=== PATIENT | female | born 1980 | race African-American/Black ===

== ENCOUNTER 2018-02-08 05:37 | Inpatient (IN) | payer OTHER ==
[~2018-02-08] VITALS: Ht 162.6 cm; Wt 127.0 kg
[~2018-02-08 05:37] MED LIST: ZOFRAN ODT4 M1 SL
[2018-02-08 06:23] LABS: ABSOLUTE BASOPHIL COUNT 0 /CUMM (0.0-0.2); ABSOLUTE EOSINOPHIL COUNT 0.2 /CUMM (0.0-0.7); ABSOLUTE GRANULOCYTE CT 7.9 /CUMM (1.4-6.5); ABSOLUTE LYMPH COUNT 1.8 /CUMM (1.2-3.4); ABSOLUTE MONOCYTE COUNT 0.9 /CUMM (0.10-0.60); BASOPHIL % 0.3 % (0.0-2.0); EOSINOPHIL % 1.6 % (0-5); GRANULOCYTE % 73.1 % (42.2-75.2); HEMATOCRIT 30.4 % (37-47); MEAN CORPUSCULAR HGB 27.2 PG (27.0-31.0); MEAN CORPUSCULAR HGB CONC 33.2 G/DL (33.0-37.0); PLATELET COUNT 198 /CUMM (130-400); RED BLOOD CELL CT 3.71 /CUMM (4.20-5.40); WHITE BLOOD CELL COUNT 10.8 /CUMM (4.8-10.8)
[2018-02-08 09:35] VITALS: BP 111/53
--- NOTE | 2018-02-08 09:35 | History & Physical Pre-Op ---
General Information and HPI MD Statement: I have seen and personally examined HENRY HARRIS and documented this H&P. The patient is a 37 year old F who presented with a patient stated chief complaint of []. Term 2 previous sections History of Present Illness: 42-year-old 3 para 2001 at 39 weeks gestation with a previous section 2 who presents to the childbirth center for a repeat section and tubal ligation patient has been counseled regarding tubal ligation with a failure rate of 1 every 250 given the opportunity ask questions and signed a consent. Allergies/Medications Allergies: Coded Allergies: No Known Allergies (07/17/17) Home Med list No Known Home Medications Past History Surgical History Pertinent Surgical History: Review of Systems Review of Systems: Denies contractions denies rupture of membranes fever headache Exam & Diagnostic Data Last 24 Hrs of Vital Signs/I&O As per chart vital signs stable Physical Exam: Obese black female in no apparent distress HEENT anicteric Lungs clear Heart S1-S2 Abdomen soft nontender estimated weight 8 pounds Cervix is 1 cm long vertex floating extremities +1 edema negative Homans Assessment/Plan Assessment/Plan: Assessment is term 2 previous sections multiparity plan is for 3 g of Ancef a section and tubal ligation As Ranked By This Provider Problem List: 1.
--- NOTE | 2018-02-08 09:42 | Operative Report ---
Operative/Inv Procedure Report Surgery Date: 02/08/18 Name of Procedure: Repeat low flap transverse section bilateral tubal ligation Via Rosie technique and lysis of adhesions Pre-Operative Diagnosis: Term 2 previous sections and multiparity advanced maternal age Post-Operative Diagnosis: Same Estimated Blood Loss: 850 Surgeon/Teller Head: Yoel SPAULDING,Yany Flynn Anesthesia: block Operative/Procedure Note Note: Procedure note patient was taken to the operating room placed on position after adequate skin testing for spinal anesthesia the skin was cut with a knife through no Pfannenstiel skin incision was carried down to the rectus fascia using the Bovie care was taken to extend the incision and create hemostasis the rectus sheath was dissected bluntly as well as sharply off of the fascia the rectus was densely adherent on and was dissected bluntly as well as sharply off of the fundus of the uterus the lower blade of the [place] was placed in the lower end of the incision the visceral peritoneum of the uterus was dissected anteriorly to develop bladder flap there were dense adhesions on the patient's right at this point the bladder blade was replaced to protect the bladder flap in the lower uterine segment use was nicked entered with the back and knife dissected bluntly as well as sharply all instruments oversewn 3 the endosalpinx was Bovie coagulated patient tolerated that well at this point the left tube was picked up care to its fimbriated end approximately 770s to be Bovie coagulated cut and removed oversewn 3 hemostasis was apparent this was returned to abdominal cavity all pedicles were reexamined and found to be hemostatic the peritoneum was reapproximated using 0 the fascia was replacement to continue sutures #1 the skin was reapproximated using micheal at the end of the case the counts correct urine was clear Jose had been applied to the uterine incision prior to skin closing from the field the infant was delivered over the abdominal wall suction well and to clear the cord was doubly clamped cut and was handed to the insight leader was in the delivery room to aid in resuscitation placenta was delivered manually noted to be intact was wiped clean with 4 white dry laps as well as a ring forcep to remove adherent tissue intravenous Pitocin as well as intramyometrial Pitocin was used for uterine contractility at this point the uterus is oversewn with clot removed and Bovie coagulated the endosalpinx. And suture of 0 was imbricated interrupted figure of eights a running locking suture imbrication of 0 was performed hemostasis was apparent at this point the right tube was carried to its embedded and approximately 7 cm tube was clamped and oversewn. At this point the uterus was returned to abdominal cavity. The pedicles were reexamined and found to be hemostatic. The fascia was reapproximated to continue sutures of #1 after Jose have been placed on surgical incision. The skin was reapproximated with micheal of the Bovie coagulation subcutaneous tissue sterile dressing was applied counts were correct urine was clear at the end the case. Other infiltrates for recovery room awake and alert Findings: Normal tubes and ovaries bilaterally dense adhesions from the rectus sheath to the peritoneum dense adhesions in the lower uterine segment to the peritoneum and the bladder otherwise normal anatomy viable male three-vessel cord 7 lbs. 9 oz.
[2018-02-09 08:35] LABS: ABSOLUTE BASOPHIL COUNT 0 /CUMM (0.0-0.2); ABSOLUTE EOSINOPHIL COUNT 0.1 /CUMM (0.0-0.7); ABSOLUTE GRANULOCYTE CT 7.1 /CUMM (1.4-6.5); ABSOLUTE LYMPH COUNT 1.2 /CUMM (1.2-3.4); ABSOLUTE MONOCYTE COUNT 0.6 /CUMM (0.10-0.60); BASOPHIL % 0.4 % (0.0-2.0); EOSINOPHIL % 1.6 % (0-5); GRANULOCYTE % 77.7 % (42.2-75.2); HEMATOCRIT 27.1 % (37-47); MEAN CORPUSCULAR HGB 26.9 PG (27.0-31.0); MEAN CORPUSCULAR HGB CONC 32.8 G/DL (33.0-37.0); MEAN PLATELET VOLUME 11.7 FL (7.4-10.4); PLATELET COUNT 177 /CUMM (130-400); RBC DISTRIBUTION WIDTH 15.1 % (11.5-14.5); WHITE BLOOD CELL COUNT 9.1 /CUMM (4.8-10.8)
--- NOTE | 2018-02-09 12:23 | PN- Post Delivery/GYN ---
Subjective Subjective: NO COMPLAINTS Objective Last 24 Hrs of Vital Signs/I&O PER CHART Physical Exam: PE OBESE BF IN NAD ABD SOFT NT LOCHIAMINIMAL INCISION CDI EXT -EDMA -HOMANS Assessment/Plan Assessment/Plan ASSESS S/PC/S TL PLAN CONT PPC
--- NOTE | 2018-02-10 07:53 | PN- Post Delivery/GYN ---
Subjective Subjective: NO COMPLAINTS Objective Last 24 Hrs of Vital Signs/I&O VSS Physical Exam: PE OBESE BF IN NAD ABD SOFT NT INCISION CDI EXT - EDEMA Assessment/Plan Assessment/Plan ASSESS S/P C/S CONT PPC PLAN CONT PPC
[2018-02-10] MEDS ORDERED: PERCOCET 5-3251 EACH PO (13:21)
[2018-02-10] MEDS ORDERED: IBUPROFEN800 M1 PO (13:21)
== END 2018-02-11 12:15 | DRG 765 ==
LOC: GNO 05:37
PROVIDERS: Specialist
PROC: 10D00Z1 Extraction of Products of Conception, Low, Open Approach (ICD-10-PCS; principal; 2018-02-08)
PROC: 0UB70ZZ Excision of Bilateral Fallopian Tubes, Open Approach (ICD-10-PCS; 2018-02-08)
DX: O34.211 Maternal care for low transverse scar from previous cesarean delivery (principal); O98.82 Other maternal infectious and parasitic diseases complicating childbirth; Z3A.39 39 weeks gestation of pregnancy; Z37.0 Single live birth; Z30.2 Encounter for sterilization; B95.1 Streptococcus, group B, as the cause of diseases classified elsewhere
CPT/HCPCS: 36415; 81001; 87071; 87086; 87389; J0690; J1200; J1650; J1885; J2405; J7120

== ENCOUNTER 2018-03-12 18:07 | Inpatient (IN) | payer OTHER ==
[~2018-03-12] VITALS: Ht 165.1 cm; Wt 123.4 kg
[~2018-03-12 18:07] MED LIST changes: +IBUPROFEN800 M1 PO; +PERCOCET 5-3251 EACH PO
--- NOTE | 2018-03-12 18:39 | ED DYSPNEA/ASTHMA COMPLAINT ---
See Addendum History of Present Illness General Chief Complaint: General Adult Stated Complaint: BACK PAIN/SOB Source: patient, family, old records Exam Limitations: no limitations Vital Signs & Intake/Output Vital Signs & Intake/Output Vital Signs Date Time Temp Pulse Resp B/P B/P Pulse O2 O2 Flow FiO2 Mean Ox Delivery Rate 03/12 2120 98.5 78 16 126/54 100 Nasal 2.0L Cannula 03/12 1848 100 Nasal 2.0L Cannula 03/12 1848 96 22 138/83 100 Nasal 2.0L Cannula Allergies Coded Allergies: No Known Allergies (07/17/17) Reconcile Medications Ibuprofen 800 MG TABLET 800 MG PO Q6P PRN UTERINE CRAMPING Oxycodone HCl/Acetaminophen (Percocet 5-325 MG Tablet) 5 MG-325 MG TABLET 1 TAB PO Q4P PRN PAIN SCALE 4-6 (MODERATE) Triage Note: PER PT SOB SINCE 0600, SP 4 WEEKS AGO. PT GRUNTING IN TRIAGE CO CP DIFF SPEAKING Triage Nurses Notes Reviewed? yes : No Patient currently breastfeeds: No HPI: Patient is 4 weeks from . There were no problems during the . The have been no problems and the period until this morning when she woke up with chest pain radiating to the back and shortness of breath. The pain is constant. There are no aggravating or mitigating factors. She feels that she cannot catch her breath. The pain is sharp and stabbing in nature. She rates the pain at 6 out of 10. (Citlali SPAULDING,Chester Rios) Past History Travel History Traveled to [place] past 21 day No Medical History Any Pertinent Medical History? 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 No (Citlali SPAULDING,Chester Rios) Review of Systems Review of Systems Constitutional: Reports: no symptoms. EENTM: Reports: no symptoms. Respiratory: Reports: see HPI, short of breath. Cardiovascular: Reports: see HPI, chest pain. GI: Reports: no symptoms. Genitourinary: Reports: no symptoms. Musculoskeletal: Reports: no symptoms. Skin: Reports: no symptoms. Neurological/Psychological: Reports: no symptoms. Hematologic/Endocrine: Reports: no symptoms. Immunologic/Allergic: Reports: no symptoms. All Other Systems: Reviewed and Negative (Citlali SPAULDING,Chester Rios) Physical Exam Physical Exam General Appearance: well developed/nourished, alert, awake, anxious, moderate distress Head: atraumatic, normal appearance Eyes: Bilateral: PERRL, EOMI. Ears, Nose, Throat: normal pharynx, normal ENT inspection, hearing grossly normal Neck: normal inspection, supple, full range of motion Respiratory: normal breath sounds, chest non-tender, no respiratory distress, lungs clear Cardiovascular: normal peripheral pulses, tachycardia Gastrointestinal: normal bowel sounds, soft, non-tender, no organomegaly Extremities: normal inspection, normal capillary refill, normal range of motion, no edema Neurologic/Psych: no motor/sensory deficits, awake, alert, oriented x 3, normal gait, normal mood/affect Skin: intact, normal color, warm/dry Lymphatic: no anterior cervical albin Core Measures ACS in differential dx? No CVA/TIA Diagnosis No Sepsis Present: No Sepsis Focused Exam Completed? No (Citlali SPAULDING,Chester Rios) Progress Differential Diagnosis: asthma, AMI, bronchitis, costochondritis, pericarditis, pulmonary embolism, pneumonia, pneumothorax Plan of Care: Orders Procedure Date/time Status Add-on Test (ER Only) 03/12 2033 Active HUMAN BETA HCG SCREEN 03/12 1843 Complete ARTERIAL BLOOD GAS (GEN) 03/12 184 Complete TROPONIN LEVEL 03/12 183 Complete PARTIAL THROMBOPLASTIN TIME 03/12 1831 Complete PROTHROMBIN TIME 03/12 183 Complete COMPREHENSIVE METABOLIC PANEL 03/12 183 Complete CBC WITHOUT DIFFERENTIAL 03/12 1831 Complete B-TYPE NATRIURETIC PEP (BNP) 03/12 1831 Complete EKG 03/12 1831 Active Laboratory Tests 03/12/182046: PT 12.4, INR 1.14, APTT 27 03/12/18 1900: pH 7.43, pCO2 40, pO2 115 H, HCO3 26, ABG O2 Sat (Measured) 98.0, Carboxyhemoglobin 0.3 L, O2 Concentration % 2L, O2 Delivery Method N/C, Phlebotomy Draw Site RIGHT RADIAL 03/12/181842: Anion Gap 8, Estimated GFR > 60, BUN/Creatinine Ratio 16.3, Glucose 107 H, Calcium 9.5, Total Bilirubin 0.3, AST 13 L, ALT 20, Alkaline Phosphatase 109, Troponin I < 0.01, Kgn-G-Wwvymatakll Pept 50.6, Total Protein 7.6, Albumin 4.2, Globulin 3.4, Albumin/Globulin Ratio 1.2, Total Beta HCG NEGATIVE 03/12/181830: CBC w Diff NO MAN DIFF REQ, RBC 4.37, MCV 80.4 L, MCH 25.9 L, MCHC 32.2 L, RDW 15.3 H, MPV 10.0, Gran % 69.2, Lymphocytes % 21.2, Monocytes % 5.9, Eosinophils % 3.3, Basophils % 0.4, Absolute Granulocytes 7.9 H, Absolute Lymphocytes 2.4, Absolute Monocytes 0.7 H, Absolute Eosinophils 0.4, Absolute Basophils 0 Diagnostic Imaging: Viewed by Me: CT Scan. Discussed w/RAD: CT Scan. Initial ED EKG: SINUS TACHYCARDIA Rhythm Strip: sinus tachycardia Hand-Off Endorsed To: Carlos Alberto Castellano DO Endorsed Time: 1945 Pending: CT (Citlali SPAULDING,Chester Rios) Departure Departure Disposition: STILL A PATIENT Condition: Stable Clinical Impression Primary Impression: Dyspnea Referrals: Patient Has No Primary Care Dr (PCP/Family) Departure Forms: Customer Survey General Discharge Information (Citlali SPAULDING,Cehster Rios) Admission Note Spoke With: Samson Lizarraga MD Documentation of Exam: Documentation of any treatments & extenuating circumstances including Concerns Regarding Discharge (functional status, medication knowledge or non-compliance, living conditions, etc.) that warrant an admission rather than observation: [The patient needs admission to the ICU for IV heparin, pulmonary consultation, hemodynamic monitoring and oxygen Patient was signed out to me by Dr. Godwin at 7 PM] PATIENT: HENRY HARRIS PRESENT AGE: 37 PATIENT ACCOUNT NO: [id number] : 81 LOCATION: [facility] ORDERING PHYSICIAN: Estefany MCWILLIAMS SERVICE DATE: 03/12/18 EXAM TYPE: CAT - CTA CHEST-PULMONARY EMBOLISM Addendum: This critical result was discussed by telephone with Dr. Castellano at 10:50 PM on 03/12/2018 . Addendum Signed by: Mane Stringer MD 03/12/18 7992 EXAMINATION: CT ANGIOGRAM OF THE CHEST WITH AND WITHOUT CONTRAST (CT PULMONARY ANGIOGRAM FOR PE) CLINICAL INFORMATION: Presumptive Dx: PE Signs Symptoms: hypoxia, CP, SOB, post COMPARISON: Chest radiograph dated 02/20/2018 TECHNIQUE: Prior to contrast administration, noncontrast localization images were obtained. Subsequently, multidetector volumetric imaging was performed from the thoracic inlet to below the diaphragms following the administration of 95 mL Optiray 320 intravenous contrast. No contrast reaction reported. Sagittal, coronal, and MIP oblique sagittal reformatted images were obtained on the CT workstation, uploaded to PACS, and reviewed. Total exam dose-length product 856 mGy-cm. FINDINGS: QUALITY OF STUDY/CONTRAST BOLUS: Satisfactory PULMONARY ARTERIES: There is a filling defect within the lobar and apical segmental branches of the right upper lobe with nonfilling of a subsegmental branch to the right lung apex. A filling defect is also present within the segmental pulmonary artery to the lateral basilar segment of the left lower lobe. A pulmonary embolus is also suspected within a subsegmental branch of the medial basilar segment. No larger pulmonary emboli identified in the main pulmonary arteries. Caliber of the pulmonary arteries is normal. THORACIC AORTA: No aneurysm or dissection. LUNG: Dependent atelectasis is present in the lower lobes bilaterally, left greater than right. Dense opacity in the posterior aspect of the left lower lobe likely corresponds to multifocal atelectasis. Very early pulmonary infarct is less likely. Central airways are clear. No suspicious pulmonary nodules are identified. PLEURA: Trace left pleural effusion MEDIASTINUM: Small amount of thymic tissue is present anteriorly. Heart is normal in size. Trace amount of pericardial fluid is noted. No adenopathy. Thyroid gland is unremarkable. No evidence of septal bowing or right heart strain. CHEST WALL/AXILLA: No axillary lymphadenopathy. OSSEOUS STRUCTURES: No acute or suspicious osseous abnormality. UPPER ABDOMEN: Unremarkable. No reflux of contrast into the hepatic veins to suggest elevated right heart pressures. IMPRESSION: 1. Acute pulmonary emboli in the right upper and left lower lobes. Overall burden is relatively small. No evidence of heart strain. 2. Bibasilar atelectasis, more pronounced in the left lower lobe. Focal dense opacity in the left lung base likely corresponds to dense atelectasis, though a small developing infarct is also possible. 3. Trace left pleural effusion VTE: positive DICTATED BY: Mane Stringer MD DATE/TIME DICTATED:03/12/182229 GERIATRIC SOCIAL WORK PROFESSOR:ANUPAM DATE/TIME TRANSCRIBED:03/12/182229 CONFIDENTIAL, DO NOT COPY WITHOUT APPROPRIATE AUTHORIZATION. <Electronically signed in Other Vendor System> SIGNED BY: Mane Stringer MD 03/12/18 0426 (Gray DONALDSON,Carlos Alberto Bartholomew) Critical Care Note Critical Care Note Critical Care Time: mins: (45MIN) (Citlali SPAULDING,Chester Rios)
[2018-03-12 18:52] LABS: ABSOLUTE BASOPHIL COUNT 0 /CUMM (0.0-0.2); ABSOLUTE EOSINOPHIL COUNT 0.4 /CUMM (0.0-0.7); ABSOLUTE GRANULOCYTE CT 7.9 /CUMM (1.4-6.5); ABSOLUTE LYMPH COUNT 2.4 /CUMM (1.2-3.4); ABSOLUTE MONOCYTE COUNT 0.7 /CUMM (0.10-0.60); BASOPHIL % 0.4 % (0.0-2.0); EOSINOPHIL % 3.3 % (0-5); GRANULOCYTE % 69.2 % (42.2-75.2); HEMATOCRIT 35.2 % (37-47); MEAN CORPUSCULAR HGB 25.9 PG (27.0-31.0); MEAN CORPUSCULAR HGB CONC 32.2 G/DL (33.0-37.0); MEAN CORPUSCULAR VOLUME 80.4 FL (81.0-99.0); PLATELET COUNT 257 /CUMM (130-400); RBC DISTRIBUTION WIDTH 15.3 % (11.5-14.5); RED BLOOD CELL CT 4.37 /CUMM (4.20-5.40); WHITE BLOOD CELL COUNT 11.4 /CUMM (4.8-10.8)
[2018-03-12 21:19] LABS: PT 12.4 SEC (9.4-12.5); PTT 27 SEC (25-37)
--- NOTE | 2018-03-12 22:49 | CT SCAN REPORT ---
EXAMINATION: CT ANGIOGRAM OF THE CHEST WITH AND WITHOUT CONTRAST (CT PULMONARY ANGIOGRAM FOR PE) CLINICAL INFORMATION: Presumptive Dx: PE Signs Symptoms: hypoxia, CP, SOB, post COMPARISON: Chest radiograph dated 02/20/2018 TECHNIQUE: Prior to contrast administration, noncontrast localization images were obtained. Subsequently, multidetector volumetric imaging was performed from the thoracic inlet to below the diaphragms following the administration of 95 mL Optiray 320 intravenous contrast. No contrast reaction reported. Sagittal, coronal, and MIP oblique sagittal reformatted images were obtained on the CT workstation, uploaded to PACS, and reviewed. Total exam dose-length product 856 mGy-cm. FINDINGS: QUALITY OF STUDY/CONTRAST BOLUS: Satisfactory PULMONARY ARTERIES: There is a filling defect within the lobar and apical segmental branches of the right upper lobe with nonfilling of a subsegmental branch to the right lung apex. A filling defect is also present within the segmental pulmonary artery to the lateral basilar segment of the left lower lobe. A pulmonary embolus is also suspected within a subsegmental branch of the medial basilar segment. No larger pulmonary emboli identified in the main pulmonary arteries. Caliber of the pulmonary arteries is normal. THORACIC AORTA: No aneurysm or dissection. LUNG: Dependent atelectasis is present in the lower lobes bilaterally, left greater than right. Dense opacity in the posterior aspect of the left lower lobe likely corresponds to multifocal atelectasis. Very early pulmonary infarct is less likely. Central airways are clear. No suspicious pulmonary nodules are identified. PLEURA: Trace left pleural effusion MEDIASTINUM: Small amount of thymic tissue is present anteriorly. Heart is normal in size. Trace amount of pericardial fluid is noted. No adenopathy. Thyroid gland is unremarkable. No evidence of septal bowing or right heart strain. CHEST WALL/AXILLA: No axillary lymphadenopathy. OSSEOUS STRUCTURES: No acute or suspicious osseous abnormality. UPPER ABDOMEN: Unremarkable. No reflux of contrast into the hepatic veins to suggest elevated right heart pressures. IMPRESSION: 1. Acute pulmonary emboli in the right upper and left lower lobes. Overall burden is relatively small. No evidence of heart strain. 2. Bibasilar atelectasis, more pronounced in the left lower lobe. Focal dense opacity in the left lung base likely corresponds to dense atelectasis, though a small developing infarct is also possible. 3. Trace left pleural effusion VTE: positive
--- NOTE | 2018-03-12 23:56 | History & Physical ---
Cristobal Riley 03/12/18 1885: General Information and HPI MD Statement: I have seen and personally examined HENRY HARRIS and documented this H&P. The patient is a 37 year old F who presented with a patient stated chief complaint of SHORTNESS OF BREATH AND BACK PAIN. Source of Information: patient, family Exam Limitations: no limitations History of Present Illness: Patient is a 37-year-old female with past medical history of section 3 , 4 weeks , who presents to the ED with 1 day of shortness of breath and bilateral back pain, left greater than right. The patient was in her normal uncomplicated state of health until this morning, at which time she experienced abrupt onset shortness of breath, especially worse when lying down. Patient also experienced pain "in her ribs "and bilaterally in her back, for which she used a topical menthol preparation, with no relief. She did not try any other medications. Prior to this visit to the ED, patient had been in to see her SENIOR SALES CONSULTANT for wound dehiscence a few weeks ago, and to the ED because her micheal had come out. At the latter of these visits, the patient had a chest x-ray performed which showed no abnormalities. The patient denies any fever, chills, night sweats, chest pain, abdominal pain, bowel issues, urinary symptoms, or continued bleeding after her delivery. Her shortness of breath is more pronounced when lying flat. 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 Home Who Do You Live With? spouse, child Services at Home: None Primary Language: Palauan Smoking Status: Never Smoked ETOH Use: denies use Illicit Drug Use: denies illicit drug use Living Will? unknown Functional Ability ADLs Independent: dressing, eating, toileting, bathing. Ambulation: independent IADLs Independent: shopping, housework, finances, food prep, telephone, transportation , medication admin. 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 Exam & Diagnostic Data Last 24 Hrs of Vital Signs/I&O Vital Signs Date Time Temp Pulse Resp B/P B/P Pulse O2 O2 Flow FiO2 Mean Ox Delivery Rate 03/13 0003 98.6 71 18 127/72 100 Nasal 2.0L Cannula 03/12 2120 98.5 78 16 126/54 100 Nasal 2.0L Cannula 03/12 1848 100 Nasal 2.0L Cannula 03/12 1848 96 22 138/83 100 Nasal 2.0L Cannula Intake & Output 03/13 0800 03/13 0000 03/12 1600 Intake Total 0 Output Total 200 Balance -200 Intake, Oral 0 Output, Urine 200 Patient 273 lb Weight Weight Standing Scale Measurement Method Physical Exam General Appearance Alert, Oriented X3, Cooperative, Mild Distress Skin No Rashes, No Breakdown, No Significant Lesion Skin Temp/Moisture Exam: Warm/Dry HEENT Atraumatic, PERRLA, EOMI Neck Supple, No JVD, No thryomegaly Lymphatic Cervical nl Cardiovascular Regular Rate, Normal S1, Normal S2, No Murmurs, Gallops, Rubs Lungs Clear to Auscultation, decreased air movement; no wheezes or rhonchi, patient on 2L nasal canula Abdomen Normal Bowel Sounds, Soft, No Tenderness, obese; wound appropriately healed and dry Neurological Normal Speech, Strength at 5/5 X4 Ext, Normal Tone, Sensation Intact, Cranial Nerves 3-12 NL Extremities No Clubbing, No Cyanosis, No Edema Last 24 Hrs of Labs/Juvencio: Laboratory Tests 03/13/18 0118: Troponin I Pending 03/12/182046: PT 12.4, INR 1.14, APTT 27 03/12/18 1900: pH 7.43, pCO2 40, pO2 115 H, HCO3 26, ABG O2 Sat (Measured) 98.0, Carboxyhemoglobin 0.3 L, O2 Concentration % 2L, O2 Delivery Method N/C, Phlebotomy Draw Site RIGHT RADIAL 03/12/181842: Anion Gap 8, Estimated GFR > 60, BUN/Creatinine Ratio 16.3, Glucose 107 H, Calcium 9.5, Total Bilirubin 0.3, AST 13 L, ALT 20, Alkaline Phosphatase 109, Troponin I < 0.01, Rpd-X-Zxnpiebihkj Pept 50.6, Total Protein 7.6, Albumin 4.2, Globulin 3.4, Albumin/Globulin Ratio 1.2, Total Beta HCG NEGATIVE 03/12/181830: CBC w Diff NO MAN DIFF REQ, RBC 4.37, MCV 80.4 L, MCH 25.9 L, MCHC 32.2 L, RDW 15.3 H, MPV 10.0, Gran % 69.2, Lymphocytes % 21.2, Monocytes % 5.9, Eosinophils % 3.3, Basophils % 0.4, Absolute Granulocytes 7.9 H, Absolute Lymphocytes 2.4, Absolute Monocytes 0.7 H, Absolute Eosinophils 0.4, Absolute Basophils 0 Diagnostic Data Other Results SERVICE DATE: 03/12/18-1831 EXAM TYPE: CAT - CTA CHEST-PULMONARY EMBOLISM Addendum: This critical result was discussed by telephone with Dr. Castellano at 10:50 PM on 03/12/2018 . Addendum Signed by: Mane Stringer MD 03/12/18 2390 EXAMINATION: CT ANGIOGRAM OF THE CHEST WITH AND WITHOUT CONTRAST (CT PULMONARY ANGIOGRAM FOR PE) CLINICAL INFORMATION: Presumptive Dx: PE Signs Symptoms: hypoxia, CP, SOB, post COMPARISON: Chest radiograph dated 02/20/2018 TECHNIQUE: Prior to contrast administration, noncontrast localization images were obtained. Subsequently, multidetector volumetric imaging was performed from the thoracic inlet to below the diaphragms following the administration of 95 mL Optiray 320 intravenous contrast. No contrast reaction reported. Sagittal, coronal, and MIP oblique sagittal reformatted images were obtained on the CT workstation, uploaded to PACS, and reviewed. Total exam dose-length product 856 mGy-cm. FINDINGS: QUALITY OF STUDY/CONTRAST BOLUS: Satisfactory PULMONARY ARTERIES: There is a filling defect within the lobar and apical segmental branches of the right upper lobe with nonfilling of a subsegmental branch to the right lung apex. A filling defect is also present within the segmental pulmonary artery to the lateral basilar segment of the left lower lobe. A pulmonary embolus is also suspected within a subsegmental branch of the medial basilar segment. No larger pulmonary emboli identified in the main pulmonary arteries. Caliber of the pulmonary arteries is normal. THORACIC AORTA: No aneurysm or dissection. LUNG: Dependent atelectasis is present in the lower lobes bilaterally, left greater than right. Dense opacity in the posterior aspect of the left lower lobe likely corresponds to multifocal atelectasis. Very early pulmonary infarct is less likely. Central airways are clear. No suspicious pulmonary nodules are identified. PLEURA: Trace left pleural effusion MEDIASTINUM: Small amount of thymic tissue is present anteriorly. Heart is normal in size. Trace amount of pericardial fluid is noted. No adenopathy. Thyroid gland is unremarkable. No evidence of septal bowing or right heart strain. CHEST WALL/AXILLA: No axillary lymphadenopathy. OSSEOUS STRUCTURES: No acute or suspicious osseous abnormality. UPPER ABDOMEN: Unremarkable. No reflux of contrast into the hepatic veins to suggest elevated right heart pressures. IMPRESSION: 1. Acute pulmonary emboli in the right upper and left lower lobes. Overall burden is relatively small. No evidence of heart strain. 2. Bibasilar atelectasis, more pronounced in the left lower lobe. Focal dense opacity in the left lung base likely corresponds to dense atelectasis, though a small developing infarct is also possible. 3. Trace left pleural effusion VTE: positive Assessment/Plan Assessment: 37-year-old patient who presents with shortness of breath and bilateral back pain. Problem list/plan: Bilateral pulmonary embolism -Tylenol, vicodin, dilaudid, lidoderm as needed for associated back pain DVT prophylaxis: IV heparin and ALPS Heart healthy diet Patient is full code As Ranked By This Provider Problem List: 1. Bilateral pulmonary embolism Core Measures/Misc (04/19) Acute Coronary Syndrome ACS Diagnosis: No Congestive Heart Failure Congestive Heart Failure Diagnosis No Cerebrovascular Accident CVA/TIA Diagnosis: No VTE (View Protocol) VTE Risk Factors / No Mechanical VTE Prophylaxis d/t N/A MechProphylax Ordered No VTE Pharm Prophylaxis d/t NA PharmProphylax ordered Sepsis (View protocol) Sepsis Present: No If YES complete Sepsis Event Note If YES complete Sepsis Event Note Anabel Smith MD 03/13/18 0017: Core Measures/Misc (04/19) Sepsis (View protocol) If YES complete Sepsis Event Note If YES complete Sepsis Event Note Resident Review Statement Resident Statement: examined this patient, discussed with post graduate intern, agreed with post graduate intern, discussed with family Other Findings: 37-year-old female para 3 lives 3, previous 3 Aguirre years, last childbirth 4 weeks ago came to [facility] with complaints of shortness of breath since morning. According to the patient she was in usual state of health until today morning following which she started developing pain in her back and left side of chest and difficulty in breathing. Patient tried ekye-qhx-kslmjdt local pain cream with no relief. Hence she decided to come to ER. During the same time she denies chest pain, palpitations, nausea, vomiting, abdominal pain, left arm pain, jaw pain, pain radiates into her back, fall, fever, chills, dizziness, headache, constipation, diarrhea. Patient came for follow-up a week after the last childbirth during that time she had wheezing and no imaging/treatment was given. Patient came to ED on 15 February for a wound dehiscence and was sent home with instruction to do dressing and follow-up with SENIOR SALES CONSULTANT. Chest x-ray was taken then which was found to be normal. Patient did not follow-up with her SENIOR SALES CONSULTANT related due to insurance issues. 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 According to her she has been eating and drinking well and was ambulating. Past medical history-none Past surgical history-3 [facility] Social history-denies alcohol, smoking, illicit drug use Family history-mother last year was diagnosed with clots [does not know the location] and had stroke. Denies family history of any bleeding disorders. On examination Patient is not in any acute distress; is in a recumbent position on 2 L of oxygen Conscious, oriented 3 CVS-S1-S2 no murmur Respiratory-decreased breath sounds bilaterally Abdomen-obese bowel sounds heard [facility] scar-healed Bilateral legs mild pedal edema Lxgzhqhujjuc-0-20 cranial nerves intact no weakness Admission vitals Temperature 98.5, pulse rate 70, respiratory rate 16, blood pressure 126/54, saturating 100% on 2 L of oxygen Admission labs WBC 11.4, hemoglobin 11.3, platelet count 257, sodium 138, potassium 4.3, BUN 13 , creatinine 0.8, total bilirubin 0.3, calcium 9.5, AST 13, ALT 20, troponin 0 0.01 beta-hCG negative. ED treatment Morphine 4 mg IV, Toradol IV once. CTA 1. Acute pulmonary emboli in the right upper and left lower lobes. Overall burden is relatively small. No evidence of heart strain. 2. Bibasilar atelectasis, more pronounced in the left lower lobe. Focal dense opacity in the left lung base likely corresponds to dense atelectasis, though a small developing infarct is also possible. 3. Trace left pleural effusion Assessment and plan 1. Bilateral pulmonary embolism Patient has bilateral pulmonary embolism this can be secondary due to dehydration/decreased ambulation. Denies family history of bleeding disorder/ coagulation. We will start her on IV heparin. EKG-sinus tachycardia with no RV strain. We will place her on telemetry. 2. Back pain-we will give Tylenol, Dilaudid, Percocet, Lidoderm patch as needed. 3. Vitals every shift 4. DVT prophylaxis-heparin and Alps 5. We will repeat EKG and troponin in the a.m. 6. Echocardiogram to rule out any RV strain consider cardiology if needed in the morning. 7. Consider bilateral Doppler of the legs. 8. Patient's SENIOR SALES CONSULTANT Dr. Dilalo needs to be informed in the morning. 9. Patient had LSCS- wound dehiscence-now appears healthy with no discharge. Code-full code Diet-heart healthy diet Zia SPAULD[place] 03/13/18 0422: General Information and HPI MD Statement: I have seen and personally examined HENRY HARRIS and documented this H&P. The patient is a 37 year old F who presented with a patient stated chief complaint of [shortness of breath]. Source of Information: patient Allergies/Medications Allergies: Coded Allergies: No Known Allergies (07/17/17) Past History Surgical History Surgical History: Past Family/Social History Psychosocial History Smoking Status: Never Smoked ETOH Use: denies use Illicit Drug Use: denies illicit drug use Employment History Employment Employed Review of Systems Review of Systems Constitutional: Reports: see HPI. Exam & Diagnostic Data Last 24 Hrs of Vital Signs/I&O Vital Signs Date Time Temp Pulse Resp B/P B/P Pulse O2 O2 Flow FiO2 Mean Ox Delivery Rate 03/13 0320 97.8 78 18 144/68 100 Nasal 2.0L Cannula 03/13 0003 98.6 71 18 127/72 100 Nasal 2.0L Cannula 03/120 98.5 78 16 126/54 100 Nasal 2.0L Cannula 03/12 1848 100 Nasal 2.0L Cannula 03/12 1848 96 22 138/83 100 Nasal 2.0L Cannula Intake & Output 03/13 0800 03/13 0000 03/12 1600 Intake Total 0 Output Total 200 Balance -200 Intake, Oral 0 Output, Urine 200 Patient 273 lb Weight Weight Standing Scale Measurement Method Physical Exam General Appearance Alert, Oriented X3, Cooperative, Mild Distress Skin No Rashes, No Breakdown, No Significant Lesion Skin Temp/Moisture Exam: Warm/Dry Sepsis Skin Exam (color): Normal for Ethnicity HEENT Atraumatic, PERRLA, EOMI Neck Supple, No JVD, No thryomegaly Lymphatic Axillary nl, Cervical nl Cardiovascular Regular Rate, Normal S1, Normal S2, No Murmurs Lungs decreased air movement; no wheezes or rhonchi, patient on 2L nasal canula Abdomen Normal Bowel Sounds, Soft, No Tenderness, obese; wound appropriately healed and dry Neurological Normal Gait, Normal Speech Extremities No Clubbing, No Cyanosis, No Edema Sepsis Peripheral Pulse Location: Dorsalis Pedis Sepsis Peripheral Pulse Exam: Normal Sepsis Cap Refill Exam: <2 Sec Last 24 Hrs of Labs/Juvencio: Laboratory Tests 03/13/18 0118: Troponin I < 0.01 03/12/182046: PT 12.4, INR 1.14, APTT 27 03/12/18 1900: pH 7.43, pCO2 40, pO2 115 H, HCO3 26, ABG O2 Sat (Measured) 98.0, Carboxyhemoglobin 0.3 L, O2 Concentration % 2L, O2 Delivery Method N/C, Phlebotomy Draw Site RIGHT RADIAL 03/12/18 184: Anion Gap 8, Estimated GFR > 60, BUN/Creatinine Ratio 16.3, Glucose 107 H, Calcium 9.5, Total Bilirubin 0.3, AST 13 L, ALT 20, Alkaline Phosphatase 109, Troponin I < 0.01, Ntq-G-Vusaoqasoal Pept 50.6, Total Protein 7.6, Albumin 4.2, Globulin 3.4, Albumin/Globulin Ratio 1.2, Total Beta HCG NEGATIVE 03/12/18 1831: CBC w Diff NO MAN DIFF REQ, RBC 4.37, MCV 80.4 L, MCH 25.9 L, MCHC 32.2 L, RDW 15.3 H, MPV 10.0, Gran % 69.2, Lymphocytes % 21.2, Monocytes % 5.9, Eosinophils % 3.3, Basophils % 0.4, Absolute Granulocytes 7.9 H, Absolute Lymphocytes 2.4, Absolute Monocytes 0.7 H, Absolute Eosinophils 0.4, Absolute Basophils 0 Core Measures/Misc (04/19) Sepsis (View protocol) If YES complete Sepsis Event Note If YES complete Sepsis Event Note Attending MD Review Statement Attending Statement Attending MD Statement: examined this patient, discuss w/resident/PA/[employer], agreed w/resident/PA/[employer], reviewed EMR data (avail), amended to note Attending Assessment/Plan: This patient is a 37-year-old female (para 3 3) without a significant past medical history gave to her last child 4 weeks ago and came to [facility] with complaints of shortness of breath since the morning of admission. According to the patient she was in usual state of health until today when she developing pain in her back and left side of chest and difficulty breathing. While in the ED she was found to have normal VS, slightly elevated WBC 11.4, CTA - Acute pulmonary emboli in the right upper and left lower lobes and EKG-sinus tachycardia with no RV strain. Admit to telemetry for bilateral pulmonary embolism. Started her on IV heparin. Repeat EKG and troponin in the a.m. Echocardiogram to rule out any RV strain. Pulmonary consult.
[2018-03-13 04:38] VITALS: BP 112/74
--- NOTE | 2018-03-13 05:24 | PN- Housestaff ---
See Addendum Subjective Follow-up For: Bilateral PE Complaints: no complaints Tele-Events Since Last Visit: Normal sinus rhythm Subjective: Patient seen and examined at bedside. She is sitting in her bed and appears to be in mild distress. She complains of back pain. She is anxious about her prognosis. She denies chest pain, palpitations, nausea, vomiting, dizziness. Review of Systems Constitutional: Reports: no symptoms. Objective Last 24 Hrs of Vital Signs/I&O Vital Signs Date Time Temp Pulse Resp B/P B/P Pulse O2 O2 Flow FiO2 Mean Ox Delivery Rate 03/13 0438 99.1 82 24 112/74 98 Nasal 2.0L Cannula 03/13 0436 Nasal 2.0L Cannula 03/13 0320 97.8 78 18 144/68 100 Nasal 2.0L Cannula 03/13 0003 98.6 71 18 127/72 100 Nasal 2.0L Cannula 03/12 2120 98.5 78 16 126/54 100 Nasal 2.0L Cannula 03/12 1848 100 Nasal 2.0L Cannula 03/12 1848 96 22 138/83 100 Nasal 2.0L Cannula Intake & Output 03/13 0800 03/13 0000 03/12 1600 Intake Total 0 Output Total 200 Balance -200 Intake, Oral 0 Output, Urine 200 Patient 271 lb 273 lb Weight Weight Bed scale Standing Scale Measurement Method Physical Exam General Appearance: Alert, Oriented X3, Cooperative, No Acute Distress, Mild Distress Cardiovascular: Regular Rate, Normal S1, Normal S2, No Murmurs Lungs: DEC B/L BREATH SOUNDS Abdomen: Soft, No Tenderness, No Hepatospenomegaly Neurological: Strength at 5/5 X4 Ext, Normal Tone, Sensation Intact, Cranial Nerves 3-12 NL Extremities: No Edema, Normal Pulses Current Medications: Current Medications Sig/Olinda Start time Last Medication Dose Route Stop Time Status Admin Acetaminophen 650 MG Q6P PRN 03/13 0200 AC PO Heparin Sodium 0 .STK-MED ONE 03/13 110 DC (Porcine) .ROUTE Heparin Sodium 5,000 UNIT ONCE ONE 03/13 0030 DC 03/13 (Porcine) IV 03/13 003 0115 Heparin Sodium 25,000 UNIT Q24H 03/13 003 AC 03/12 (Porcine) IV 2315 Sodium Chloride 500 ML Heparin Sodium 25,000 UNIT Q24H 03/13 0015 DC 03/12 (Porcine) IV 2315 Sodium Chloride 500 ML Hydrocodone Bitart/ 0 .STK-MED ONE 03/13 0348 DC Acetaminophen PO Hydrocodone Bitart/ 1 TAB Q6P PRN 03/13 200 AC 03/13 Acetaminophen PO 0356 Hydromorphone HCl 0 .STK-MED ONE 03/13 0330 DC .ROUTE Hydromorphone HCl 0.5 MG Q4P PRN 03/13 020 DC 03/13 IV 0333 Ketorolac 30 MG ONCE ONE 03/13 0500 DC Tromethamine IV 03/13 050 Ketorolac 0 .STK-MED ONE 03/12 184 DC Tromethamine .ROUTE Ketorolac 30 MG ONCE ONE 03/12 184 DC 03/12 Tromethamine IV 03/12 1846 184 Lidocaine 1 PAT DAILY PRN 03/13 200 AC 03/13 EXT 0338 Lorazepam 0 .STK-MED ONE 03/13 0431 DC PO Lorazepam 0.25 MG ONCE ONE 03/13 0430 DC 03/13 PO 03/13 043 0432 Morphine Sulfate 1 MG Q6P PRN 03/13 043 AC 03/13 IV 0432 Morphine Sulfate 0 .STK-MED ONE 03/13 042 DC .ROUTE Morphine Sulfate 0 .STK-MED ONE 03/12 1847 DC .ROUTE Morphine Sulfate 4 MG ONCE ONE 03/12 1845 DC 03/12 IV 03/12 Last 24 Hrs of Lab/Juvencio Results Last 24 Hrs of Labs/Mics: Laboratory Tests 03/13/18 0118: Troponin I < 0.01 03/12/182046: PT 12.4, INR 1.14, APTT 27 03/12/18 1900: pH 7.43, pCO2 40, pO2 115 H, HCO3 26, ABG O2 Sat (Measured) 98.0, Carboxyhemoglobin 0.3 L, O2 Concentration % 2L, O2 Delivery Method N/C, Phlebotomy Draw Site RIGHT RADIAL 03/12/181842: Anion Gap 8, Estimated GFR > 60, BUN/Creatinine Ratio 16.3, Glucose 107 H, Calcium 9.5, Total Bilirubin 0.3, AST 13 L, ALT 20, Alkaline Phosphatase 109, Troponin I < 0.01, Llz-A-Esxrmgriwbn Pept 50.6, Total Protein 7.6, Albumin 4.2, Globulin 3.4, Albumin/Globulin Ratio 1.2, Total Beta HCG NEGATIVE 03/12/18 1831: CBC w Diff NO MAN DIFF REQ, RBC 4.37, MCV 80.4 L, MCH 25.9 L, MCHC 32.2 L, RDW 15.3 H, MPV 10.0, Gran % 69.2, Lymphocytes % 21.2, Monocytes % 5.9, Eosinophils % 3.3, Basophils % 0.4, Absolute Granulocytes 7.9 H, Absolute Lymphocytes 2.4, Absolute Monocytes 0.7 H, Absolute Eosinophils 0.4, Absolute Basophils 0 Assessment/Plan Assessment: 37-year-old female para 3 lives 3, previous 3 Agu[place] years, last childbirth 4 weeks ago came to [place] ER with complaints of shortness of breath and found to have bilateral pulmonary embolism. Assessment and plan Bilateral pulmonary embolism * Continue IV heparin * Shortness of breath-on oxygen. Continue the same * Back pain-Lidoderm, Tylenol, Vicodin, morphine on board. * We will continue vitals every shift * Follow-up troponin EKG * Follow-up echocardiogram to rule out any RV strain and cardiology consult * Follow-up pulmonary consult * We will inform Dr. Diallo in a.m. * Consider bilateral lower extremity Doppler. Code-full code Diet heart healthy diet Problem List: 1. Bilateral pulmonary embolism Pain Ratin Pain Location: None Pain Goal: Remain pain free Pain Plan: Tylenol, Lidoderm, morphine Tomorrow's Labs & Rationales: CBC, BEP
[2018-03-13 06:27] LABS: ABSOLUTE BASOPHIL COUNT 0 /CUMM (0.0-0.2); ABSOLUTE EOSINOPHIL COUNT 0.4 /CUMM (0.0-0.7); ABSOLUTE GRANULOCYTE CT 6.9 /CUMM (1.4-6.5); ABSOLUTE LYMPH COUNT 2.6 /CUMM (1.2-3.4); ABSOLUTE MONOCYTE COUNT 1.1 /CUMM (0.10-0.60); BASOPHIL % 0.4 % (0.0-2.0); EOSINOPHIL % 3.2 % (0-5); GRANULOCYTE % 62.6 % (42.2-75.2); HEMATOCRIT 30.9 % (37-47); MEAN CORPUSCULAR HGB 26.1 PG (27.0-31.0); MEAN CORPUSCULAR HGB CONC 32.6 G/DL (33.0-37.0); MEAN CORPUSCULAR VOLUME 79.9 FL (81.0-99.0); MEAN PLATELET VOLUME 10.4 FL (7.4-10.4); PLATELET COUNT 231 /CUMM (130-400); RBC DISTRIBUTION WIDTH 15.3 % (11.5-14.5); RED BLOOD CELL CT 3.87 /CUMM (4.20-5.40); WHITE BLOOD CELL COUNT 11.1 /CUMM (4.8-10.8)
[2018-03-13 06:33] LABS: PTT 89 SEC (25-37)
--- NOTE | 2018-03-13 11:36 | ECHOCARDIOGRAM REPORT ---
HENRY HARRIS Age: 37 : 1980 Gender: F Exam Date: 03/13/2018 09:24 Exam Location: [address] Ht (in): 65 Wt (lb): 272 BSA: 2.45 BP: 112 / 74 Ordering Physician: Anabel Smith MD Referring Physician: Anabel Smith MD Technologist: Rand Luciano [facility] Room Number: 172 Indications: Rhythm: Sinus Technical Quality: fair FINDINGS Left Ventricle Normal left ventricular size, wall thickness and systolic function with no obvious regional wall motion abnormalities. Normal left ventricular diastolic filling pattern for age. The ejection fraction is visually estimated at 60 %. Right Ventricle The right ventricle is not well visualized but appears grossly normal in size and function. RVSP 25 mmHg, therefore normal. Right Atrium The right atrium is normal in size. Left Atrium The left atrium is normal in size. The interatrial septum is not well visualized. Mitral Valve The mitral valve is normal in structure and function. There is no mitral regurgitation. Aortic Valve Structurally normal aortic valve without significant sclerosis or stenosis. There is no aortic regurgitation. Tricuspid Valve The tricuspid valve is normal in structure and function. There is mild tricuspid regurgitation. Pulmonary artery systolic pressure is normal. Pulmonic Valve Structurally normal pulmonic valve. There is no pulmonic regurgitation. Pericardium Normal pericardium without effusion. No pleural effusion. Great Vessels Normal aortic root dimension. The aortic arch and great vessels are well seen and are normal. CONCLUSIONS The right ventricle is not well visualized but appears grossly normal in size and function. RVSP 25 mmHg, therefore normal. Normal left ventricular size, wall thickness and systolic function with no obvious regional wall motion abnormalities. Normal left ventricular diastolic filling pattern for age. The ejection fraction is visually estimated at 60 %. The left atrium is normal in size. The tricuspid valve is normal in structure and function. There is mild tricuspid regurgitation. Pulmonary artery systolic pressure is normal. Normal pericardium without effusion. Normal aortic root dimension. The aortic arch and great vessels are well seen and are normal. Ellen Branham M.D. (Electronically Signed) Final Date: 13 March 2018 11:34 MEASUREMENTS (Male / Female) Normal Values 2D ECHO LV Diastolic Diameter PLAX 4.3 cm 4.2 - 5.9 / 3.9 - 5.3 cm LV Systolic Diameter PLAX 2.7 cm 2.1 - 4.0 cm LV Fractional Shortening PLAX 37.2 % 25 - 46 % LV Ejection Fraction 2D Teich 67.5 % IVS Diastolic Thickness 1.1 cm LVPW Diastolic Thickness 1.1 cm LV Relative Wall Thickness 0.5 LVOT Diameter 2.0 cm Aortic Root Diameter 2.7 cm LA Systolic Diameter LX 3.2 cm 3.0 - 4.0 / 2.7 - 3.8 cm DOPPLER AV Peak Velocity 166.0 cm/s AV Peak Gradient 11.0 mmHg LVOT Peak Velocity 106.0 cm/s LVOT Peak Gradient 4.5 mmHg AV Area Cont Eq pk 2.0 cm Mitral E Point Velocity 93.3 cm/s Mitral A Point Velocity 66.6 cm/s Mitral E to A Ratio 1.4 MV Deceleration Time 257.0 ms TR Peak Velocity 238.0 cm/s TR Peak Gradient 22.7 mmHg PV Peak Velocity 125.0 cm/s PV Peak Gradient 6.3 mmHg LV E' Lateral Velocity 12.2 cm/s Mitral E to LV E' Lateral Ratio 7.6 LV E' Septal Velocity 12.0 cm/s Mitral E to LV E' Septal Ratio 7.8
--- NOTE | 2018-03-13 12:40 | Cons- Pulmonary ---
General Information and HPI Consulting Request Date of Consult: 03/13/18 Requested By: Dr. Lizarraga Reason for Consult: pulmonary embolism Source of Information: patient Exam Limitations: no limitations History of Present Illness: 37 year old woman. Consultation for pulmonary embolism. Patient had a delivery via section about 1 month ago. She is para 3/ 3. No other significant medical history. Presented with chest pain on the left and back pain with shortness of breath for 1 day. Recent wound dehiscence post , however recovered. CTA - RUL and LLL pulmonary emboli - small clot burden without heart strain. Bibasilar atelectasis primarily LLL consolidation, consistent with atelectasis. Trace left effusion. ECHO - RV is grossly normal, RVSP is normal. EF 60%. Denies fevers, chills, no sick contacts, travel history, no n/v/d/c. No obvious family history of clotting disorders, however patient will inquire. Allergies/Medications Allergies: Coded Allergies: No Known Allergies (07/17/17) Current Medications: Current Medications Sig/Olinda Start time Last Medication Dose Route Stop Time Status Admin Acetaminophen 650 MG Q6P PRN 03/13 0200 AC PO Heparin Sodium 0 .STK-MED ONE 03/13 0110 DC (Porcine) .ROUTE Heparin Sodium 5,000 UNIT ONCE ONE 03/13 0030 DC 03/13 (Porcine) IV 03/13 0031 0115 Heparin Sodium 25,000 UNIT Q24H 03/13 0030 AC 03/12 (Porcine) IV 2315 Sodium Chloride 500 ML Heparin Sodium 25,000 UNIT Q24H 03/13 0015 DC 03/12 (Porcine) IV 2315 Sodium Chloride 500 ML Hydrocodone Bitart/ 0 .STK-MED ONE 03/13 0348 DC Acetaminophen PO Hydrocodone Bitart/ 1 TAB Q6P PRN 03/13 0200 AC 03/13 Acetaminophen PO 0356 Hydromorphone HCl 0 .STK-MED ONE 03/13 0330 DC .ROUTE Hydromorphone HCl 0.5 MG Q4P PRN 03/13 0200 DC 03/13 IV 0333 Ketorolac 30 MG ONCE ONE 03/13 1115 DC Tromethamine IV 03/13 1116 Ketorolac 30 MG ONCE ONE 03/13 0500 DC 03/13 Tromethamine IV 03/13 0501 0855 Ketorolac 0 .STK-MED ONE 03/12 1847 DC Tromethamine .ROUTE Ketorolac 30 MG ONCE ONE 03/12 184 DC 03/12 Tromethamine IV 03/12 1846 184 Lidocaine 1 PAT DAILY PRN 03/13 0200 AC 03/13 EXT 0338 Lorazepam 0 .STK-MED ONE 03/13 0431 DC PO Lorazepam 0.25 MG ONCE ONE 03/13 0430 DC 03/13 PO 03/13 043 0432 Morphine Sulfate 4 MG Q4P PRN 03/13 1115 AC IV Morphine Sulfate 1 MG Q6P PRN 03/13 0430 DC 03/13 IV 0432 Morphine Sulfate 0 .STK-MED ONE 03/13 429 DC .ROUTE Morphine Sulfate 0 .STK-MED ONE 03/12 1847 DC .ROUTE Morphine Sulfate 4 MG ONCE ONE 03/12 1845 DC 03/12 IV 03/12 1846 184 Review of Systems Comments 18 pt ROS reviewed pertinent positives and negaties in HPI otherwise negative Past History Travel History Traveled to [place] past 21 day No Medical History Blood Transfusion Hx: No Neurological: NONE EENT: NONE Cardiovascular: NONE Respiratory: NONE Gastrointestinal: NONE Hepatic: NONE Renal: NONE Musculoskeletal: NONE Psychiatric: NONE Endocrine: NONE Blood Disorders: NONE Cancer(s): NONE 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 Home Who Do You Live With? spouse, child Services at Home: None Primary Language: Swedish Smoking Status: Never Smoked ETOH Use: denies use Illicit Drug Use: denies illicit drug use Living Will? unknown Functional Ability ADLs Independent: dressing, eating, toileting, bathing. Ambulation: independent IADLs Independent: shopping, housework, finances, food prep, telephone, transportation , medication admin. 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 Exam & Diagnostic Data Last 24 Hrs of Vital Signs/I&O Vital Signs Date Time Temp Pulse Resp B/P B/P Pulse O2 O2 Flow FiO2 Mean Ox Delivery Rate 03/13 438 99.1 82 24 112/74 98 Nasal 2.0L Cannula 03/13 436 Nasal 2.0L Cannula 03/13 320 97.8 78 18 144/68 100 Nasal 2.0L Cannula 03/13 0003 98.6 71 18 127/72 100 Nasal 2.0L Cannula 03/120 98.5 78 16 126/54 100 Nasal 2.0L Cannula 03/12 1848 100 Nasal 2.0L Cannula 03/12 1848 96 22 138/83 100 Nasal 2.0L Cannula Intake & Output 03/13 1600 03/13 0800 03/13 0000 Intake Total 120 0 Output Total 200 Balance 120 -200 Intake, Oral 120 0 Output, Urine 200 Patient 271 lb 273 lb Weight Weight Bed scale Standing Scale Measurement Method Physical Exam Other Physical Findings: gen aaox3 heent nasal cannula cvs s1, s2 lungs clear b/l abd soft, bs+, healing scar ext without edema Last 48 Hrs of Labs/Juvencio: Laboratory Tests 03/13/18 0530: Anion Gap 8, Estimated GFR > 60, BUN/Creatinine Ratio 18.6, APTT 89 H, CBC w Diff NO MAN DIFF REQ, RBC 3.87 L, MCV 79.9 L, MCH 26.1 L, MCHC 32.6 L, RDW 15.3 H, MPV 10.4, Gran % 62.6, Lymphocytes % 23.8, Monocytes % 10.0 H, Eosinophils % 3.2, Basophils % 0.4, Absolute Granulocytes 6.9 H, Absolute Lymphocytes 2.6, Absolute Monocytes 1.1 H, Absolute Eosinophils 0.4, Absolute Basophils 0 03/13/18 0118: Troponin I < 0.01 03/12/18 2047: PT 12.4, INR 1.14, APTT 27 03/12/18 1900: pH 7.43, pCO2 40, pO2 115 H, HCO3 26, ABG O2 Sat (Measured) 98.0, Carboxyhemoglobin 0.3 L, O2 Concentration % 2L, O2 Delivery Method N/C, Phlebotomy Draw Site RIGHT RADIAL 03/12/18 1843: Anion Gap 8, Estimated GFR > 60, BUN/Creatinine Ratio 16.3, Glucose 107 H, Calcium 9.5, Total Bilirubin 0.3, AST 13 L, ALT 20, Alkaline Phosphatase 109, Troponin I < 0.01, [id number]-[id number] Pept 50.6, Total Protein 7.6, Albumin 4.2, Globulin 3.4, Albumin/Globulin Ratio 1.2, Total Beta HCG NEGATIVE 03/12/18 1831: CBC w Diff NO MAN DIFF REQ, RBC 4.37, MCV 80.4 L, MCH 25.9 L, MCHC 32.2 L, RDW 15.3 H, MPV 10.0, Gran % 69.2, Lymphocytes % 21.2, Monocytes % 5.9, Eosinophils % 3.3, Basophils % 0.4, Absolute Granulocytes 7.9 H, Absolute Lymphocytes 2.4, Absolute Monocytes 0.7 H, Absolute Eosinophils 0.4, Absolute Basophils 0 Assessment/Plan Impression/Plan: Impression 37 year old woman * RUL & LLL PE without right heart strain - may have been provoked by recent c- section * LLL consolidation likely secondary to atelectasis Plan -continue anti-coagulation - given no heart strain the patient can be transitioned to a NOAC such as eliquis with appropriate dosing - please inquire regarding insurance coverage to make sure it is affordable -would check a hypercoagulable profile and this can also be completed with the assistance of a foot orthopedist -check LE dopplers -improve pain control in order to participate in effective incentive spirometry -d/w nursing staff to provide IST-incentive spirometry-please ensure patient knows how to use it attempt to discontinue oxygen dc planning with hematology f/u Consult Acknowledgment - Thank you for your consult request.
[2018-03-13 14:56] VITALS: BP 120/70
--- NOTE | 2018-03-13 16:01 | Cons- Cardiology ---
General Information and HPI Consulting Request Date of Consult: 03/13/18 Requested By: Samson Lizarraga MD History of Present Illness: Young woman of 37 years of age with no known prior medical history, 4 weeks . A was performed complicated by wound dehiscence which has since heeled. Her was uneventful. She presented to the hospital in the afternoon March 12, 2018 complaining of back pain and difficulty catching her breath. CT scan of the chest revealed bilateral segmental pulmonary embolisms and patient was started on heparin. She feels somewhat better today but still complains of the back pain and experiences periods of dyspnea associated with the back pain as she cannot take a deep breath during periods of pain exacerbation. Echocardiogram performed this morning did not show any significant signs of strain on the right ventricle, which seems to contract appropriately and right ventricular systolic pressure is within normal limits. Allergies/Medications Allergies: Coded Allergies: No Known Allergies (07/17/17) Current Medications: Current Medications Sig/Olinda Start time Last Medication Dose Route Stop Time Status Admin Acetaminophen 650 MG Q6P PRN 03/13 0200 AC PO Apixaban 10 MG BID 03/13 2100 AC PO Heparin Sodium 0 .STK-MED ONE 03/13 0110 DC (Porcine) .ROUTE Heparin Sodium 5,000 UNIT ONCE ONE 03/13 0030 DC 03/13 (Porcine) IV 03/13 003 0115 Heparin Sodium 25,000 UNIT Q24H 03/13 0030 AC 03/12 (Porcine) IV 03/13 2200 2315 Sodium Chloride 500 ML Heparin Sodium 25,000 UNIT Q24H 03/13 0015 DC 03/12 (Porcine) IV 2315 Sodium Chloride 500 ML Hydrocodone Bitart/ 0 .STK-MED ONE 03/13 0348 DC Acetaminophen PO Hydrocodone Bitart/ 1 TAB Q6P PRN 03/13 0200 AC 03/13 Acetaminophen PO 0356 Hydromorphone HCl 0 .STK-MED ONE 03/13 0330 DC .ROUTE Hydromorphone HCl 0.5 MG Q4P PRN 03/13 0200 DC 03/13 IV 0333 Ibuprofen 600 MG TIDPRN PRN 03/13 1430 AC PO Ketorolac 30 MG ONCE ONE 03/13 1115 DC Tromethamine IV 03/13 1116 Ketorolac 30 MG ONCE ONE 03/13 0500 DC 03/13 Tromethamine IV 03/13 0501 0855 Ketorolac 0 .STK-MED ONE 03/12 1847 DC Tromethamine .ROUTE Ketorolac 30 MG ONCE ONE 03/12 1845 DC 03/12 Tromethamine IV 03/12 1846 1846 Lidocaine 1 PAT DAILY PRN 03/13 0200 AC 03/13 EXT 0338 Lorazepam 0 .STK-MED ONE 03/13 0431 DC PO Lorazepam 0.25 MG ONCE ONE 03/13 0430 DC 03/13 PO 03/13 0431 0432 Morphine Sulfate 4 MG Q4P PRN 03/13 1115 AC IV Morphine Sulfate 1 MG Q6P PRN 03/13 0430 DC 03/13 IV 0432 Morphine Sulfate 0 .STK-MED ONE 03/13 0429 DC .ROUTE Morphine Sulfate 0 .STK-MED ONE 03/12 1847 DC .ROUTE Morphine Sulfate 4 MG ONCE ONE 03/12 184 DC 03/12 IV 03/12 1846 184 Review of Systems Review of Systems Constitutional: Reports: no symptoms. EENTM: Reports: no symptoms. Cardiovascular: Reports: orthopena. Denies: chest pain, palpitations, syncope. Respiratory: Reports: orthopnea, short of breath. Denies: cough, hemoptysis, sputum production, stridor, wheezing. GI: Denies: abdominal pain, bloating, constipation, diarrhea, distention, vomiting. Genitourinary: Denies: discharge, dysuria, frequency, hematuria, pain. Musculoskeletal: Denies: gout, joint pain, joint swelling, muscle pain, neck pain. Skin: Reports: no symptoms. Neurological/Psychological: Reports: anxiety. Hematologic/Endocrine: Denies: bruising, bleeding, polyuria, polydipsia. 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 Home Who Do You Live With? spouse, child Services at Home: None Primary Language: Andorran Smoking Status: Never Smoked ETOH Use: denies use Illicit Drug Use: denies illicit drug use Living Will? unknown Functional Ability ADLs Independent: dressing, eating, toileting, bathing. Ambulation: independent IADLs Independent: shopping, housework, finances, food prep, telephone, transportation , medication admin. 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 Exam & Diagnostic Data Vital Signs and I&O Vital Signs Date Time Temp Pulse Resp B/P B/P Pulse O2 O2 Flow FiO2 Mean Ox Delivery Rate 03/13 1456 99.2 81 20 120/70 98 Nasal Cannula 03/13 0438 99.1 82 24 112/74 98 Nasal 2.0L Cannula 03/13 0436 Nasal 2.0L Cannula 03/13 0320 97.8 78 18 144/68 100 Nasal 2.0L Cannula 03/13 0003 98.6 71 18 127/72 100 Nasal 2.0L Cannula 03/12 2120 98.5 78 16 126/54 100 Nasal 2.0L Cannula 03/12 1848 100 Nasal 2.0L Cannula 03/12 1848 96 22 138/83 100 Nasal 2.0L Cannula Intake & Output 03/13 1600 03/13 0800 03/13 0000 03/12 1600 03/12 0800 03/12 0000 Intake Total 120 0 Output Total 200 Balance 120 -200 Intake, Oral 120 0 Output, Urine 200 Patient 271 lb 273 lb Weight Weight Bed scale Standing Scale Measurement Method Physical Exam General Appearance: alert, lethargic, mild distress, obese Head: atraumatic Eyes: Bilateral: normal appearance. Ears, Nose, Throat: normal ENT inspection Neck: supple, full range of motion, trachea mid line Respiratory: normal breath sounds, quiet respiration, lungs clear Cardiovascular: regular rate/rhythm, normal peripheral pulses (no murmur) Gastrointestinal: normal bowel sounds, soft, non-tender, no organomegaly (c- section scar well heeled) Extremities: normal inspection, normal capillary refill, no edema (no calf tenderness) Neurologic/Psych: no motor/sensory deficits, awake, oriented x 3 Assessment/Plan Assessment/Plan Bilateral pulmonary embolisms in the context of recent // wound dehiscence, the patient being quite sedentary at baseline was even more sedentary during the postoperative period. There is no apparent hemodynamically significant strain on the right ventricle. Consult Acknowledgment - Thank you for your consult request.
--- NOTE | 2018-03-13 18:06 | ULTRASOUND REPORT ---
EXAMINATION: US TRIPLEX OF LOWER EXTREMITIES, BILATERAL CLINICAL INFORMATION: Known pulmonary embolism. Question DVT. COMPARISON: None TECHNIQUE: Color-flow triplex imaging with spectral analysis and compression Doppler were performed on the lower extremities. FINDINGS: Respiratory variation, normal compression and augmented flow are noted throughout the lower extremities. The visualized common femoral vein, superficial femoral vein, profunda femoral vein, popliteal vein and midcalf peroneal and posterior tibial venous segments show no evidence of deep venous thrombosis. There is no Kan's cyst. IMPRESSION: No evidence of deep venous thrombosis involving the bilateral lower extremities.
[2018-03-13 19:14] LABS: PTT 30 SEC (25-37)
[2018-03-13 22:37] VITALS: BP 118/78
[2018-03-14 06:57] VITALS: BP 106/64
[2018-03-14 08:03] LABS: ABSOLUTE BASOPHIL COUNT 0 /CUMM (0.0-0.2); ABSOLUTE EOSINOPHIL COUNT 0.2 /CUMM (0.0-0.7); ABSOLUTE GRANULOCYTE CT 8.9 /CUMM (1.4-6.5); ABSOLUTE LYMPH COUNT 1.5 /CUMM (1.2-3.4); ABSOLUTE MONOCYTE COUNT 1.1 /CUMM (0.10-0.60); BASOPHIL % 0.2 % (0.0-2.0); EOSINOPHIL % 1.3 % (0-5); GRANULOCYTE % 75.9 % (42.2-75.2); HEMATOCRIT 31.1 % (37-47); MEAN CORPUSCULAR HGB 25.9 PG (27.0-31.0); MEAN CORPUSCULAR HGB CONC 32.4 G/DL (33.0-37.0); MEAN CORPUSCULAR VOLUME 79.7 FL (81.0-99.0); MEAN PLATELET VOLUME 10.7 FL (7.4-10.4); PLATELET COUNT 252 /CUMM (130-400); RBC DISTRIBUTION WIDTH 15.5 % (11.5-14.5); WHITE BLOOD CELL COUNT 11.7 /CUMM (4.8-10.8)
--- NOTE | 2018-03-14 09:31 | Patient Discharge Instructions ---
Discharge Instructions General Discharge Information You were seen/treated for: Bilateral Pumonary Embolism Watch for these problems: Please return to the ER in case of any chest pain, shortness of breath, lightheadedness/dizziness or lower extremity edema/swelling. Special Instructions: Please follow-up with your PCP, oven attendant and exhibit cleaner within a week after discharge. Diet Continue normal diet: Yes Activity Full Activity/No Limits: Yes Acute Coronary Syndrome Inclusion Criteria At DC or during hospital stay patient has or had the following: ACS DIAGNOSIS No Discharge Core Measures Meds if any: Prescribed or Continued at Discharge Meds if any: NOT Prescribed or Continued at Discharge Congestive Heart Failure Inclusion Criteria At DC or during hospital stay patient has or had the following: CHF DIAGNOSIS No Discharge Core Measures Meds if any: Prescribed or Continued at Discharge Meds if any: NOT Prescribed or Continued at Discharge Cerebrovascular accident Inclusion Criteria At DC or during hospital stay patient has or had the following: CVA/TIA Diagnosis No Discharge Core Measures Meds if any: Prescribed or Continued at Discharge Meds if any: NOT Prescribed or Continued at Discharge Venous thromboembolism Inclusion Criteria VTE Diagnosis Yes VTE Type Pulmonary Embolism VTE Confirmed by (Test) CT CHEST ANGIOGRAM Discharge Core Measures - Per Current guidelines, there needs to be overlap - treatment for the first 5 days of Warfarin therapy. - If discharged on Warfarin prior to 5 days of - overlap therapy, the patient will need to be - assessed for post discharge needs including - *Post discharge parental anticoagulation - *Warfarin and/or parental anticoagulation education - *Follow up date to check INR post discharge At least 5 days overlap therapy as Inpatient No Meds if any: Prescribed or Continued at Discharge Note: Overlap Therapy is Warfarin and Anticoagulant Meds if any: NOT Prescribed or Continued at Discharge
[2018-03-14] MEDS ORDERED: ELIQUIS5 M1 PO (09:34)
--- NOTE | 2018-03-14 10:32 | PN- Pulmonary ---
Subjective HPI/Critical Care Issues: patient seen and examined overall improved, however persistent pain (although controlled by opiates) instructed and demonstrated proper IST - incentive spirometry use no n/v/d/c no cheema dyspnea is secondary to pain in left lower lung field no cp Objective Current Medications: Current Medications Sig/Olinda Start time Last Medication Dose Route Stop Time Status Admin Acetaminophen 650 MG Q6P PRN 03/13 0200 AC PO Apixaban 10 MG BID 03/13 2100 AC 03/14 PO 0924 Heparin Sodium 9,233 UNIT ONCE ONE 03/13 2130 DC 03/13 (Porcine) IV 03/13 Heparin Sodium 0 .STK-MED ONE 03/13 192 DC (Porcine) .ROUTE Heparin Sodium 25,000 UNIT Q24H 03/13 0030 DC 03/12 (Porcine) IV 03/13 2200 2315 Sodium Chloride 500 ML Hydrocodone Bitart/ 1 TAB Q6P PRN 03/13 0200 AC 03/13 Acetaminophen PO 0356 Ibuprofen 600 MG TIDPRN PRN 03/13 1430 AC 03/14 PO 0925 Ketorolac 0 .STK-MED ONE 03/13 2110 DC Tromethamine .ROUTE Ketorolac 30 MG ONCE ONE 03/13 2100 DC 03/13 Tromethamine IV 03/13 Ketorolac 30 MG ONCE ONE 03/13 1115 DC 03/13 Tromethamine IV 03/13 111 1649 Lidocaine 1 PAT DAILY PRN 03/13 0200 03/13 EXT 0338 Meperidine HCl 0 .STK-MED ONE 03/13 2114 DC .ROUTE Meperidine HCl 25 MG ONCE ONE 03/13 2100 DC 03/13 IV 03/13 Morphine Sulfate 4 MG Q4P PRN 03/13 1115 AC 03/14 IV 0638 Morphine Sulfate 1 MG Q6P PRN 03/13 0430 DC 03/13 IV 0432 Vital Signs & I&O Last 24 Hrs of Vitals and I&O: Vital Signs Date Time Temp Pulse Resp B/P B/P Pulse O2 O2 Flow FiO2 Mean Ox Delivery Rate 03/14 657 98.4 100 18 106/64 96 Nasal Cannula 03/13 2239 98 Nasal 2.0L Cannula 03/13 2237 99.9 90 20 118/78 98 Nasal Cannula 03/13 2056 Nasal 3.0L Cannula 08/11 1456 99.2 81 20 120/70 98 Nasal Cannula Intake & Output 03/14 1600 03/14 0800 03/14 0000 Intake Total 360 300 Output Total Balance 360 300 Intake, Oral 360 300 Patient 272 lb Weight Weight Bed scale Measurement Method Exam Other Physical Findings: gen aaox3 heent nasal cannula cvs s1, s2 lungs clear b/l abd soft, bs+, healing scar ext without edema Results Last 24 Hrs of Lab Results: Laboratory Tests 03/14/18 0635: CBC w Diff NO MAN DIFF REQ, RBC 3.90 L, MCV 79.7 L, MCH 25.9 L, MCHC 32.4 L, RDW 15.5 H, MPV 10.7 H, Gran % 75.9 H, Lymphocytes % 13.1 L, Monocytes % 9.5 H, Eosinophils % 1.3, Basophils % 0.2, Absolute Granulocytes 8.9 H, Absolute Lymphocytes 1.5, Absolute Monocytes 1.1 H, Absolute Eosinophils 0.2, Absolute Basophils 0 03/13/18 1755: APTT 30 Impression/Plan Impression/Plan Impression/Plan: Impression 37 year old woman * RUL & LLL PE without right heart strain - may have been provoked by recent c- section * LLL consolidation likely secondary to atelectasis vs pulmonary infarction ( less likely), small left pleural effusion Plan -continue anti-coagulation - given no heart strain the patient can be transitioned to a NOAC such as eliquis with appropriate dosing - please inquire regarding insurance coverage to make sure it is affordable -CHECK hypercoagulable profile for genetic predisposition -f/u with a neurodiagnostic technician as outpatient -improve pain control in order to participate in effective incentive spirometry, consider tramadol, continue NSAIDS, would use a standing dose for 48-72 hours, then can do prn -personally instructed and demonstrated proper incentive spirometry use attempt to discontinue oxygen dc planning with hematology f/u out of bed as tolerated
--- NOTE | 2018-03-14 13:06 | PN- Housestaff ---
See Addendum Subjective Follow-up For: Bilateral PE Subjective: Patient seen seated comfortably at the bedside, holding her baby. She is awake and oriented, but somewhat tired/lethargic. Reports that her pain is under control, denies shortness of breath. Review of Systems Constitutional: Denies: chills, diaphoresis, fever. Objective Last 24 Hrs of Vital Signs/I&O Vital Signs Date Time Temp Pulse Resp B/P B/P Pulse O2 O2 Flow FiO2 Mean Ox Delivery Rate 03/14 0657 98.4 100 18 106/64 96 Nasal Cannula 03/13 2239 98 Nasal 2.0L Cannula 03/13 2237 99.9 90 20 118/78 98 Nasal Cannula 03/13 2056 Nasal 3.0L Cannula 03/13 1456 99.2 81 20 120/70 98 Nasal Cannula Intake & Output 03/14 1600 03/14 0800 03/14 0000 Intake Total 360 300 Output Total Balance 360 300 Intake, Oral 360 300 Patient 123.377 kg Weight Weight Bed scale Measurement Method Physical Exam General Appearance: Alert, Oriented X3, Cooperative, No Acute Distress Current Medications: Current Medications Sig/Olinda Start time Last Medication Dose Route Stop Time Status Admin Acetaminophen 650 MG Q6P PRN 03/13 0200 AC PO Apixaban 10 MG BID 03/13 2100 AC 03/14 PO 0924 Heparin Sodium 9,233 UNIT ONCE ONE 03/13 2130 DC 03/13 (Porcine) IV 03/13 Heparin Sodium 0 .STK-MED ONE 03/13 1929 DC (Porcine) .ROUTE Heparin Sodium 25,000 UNIT Q24H 03/13 0030 DC 03/12 (Porcine) IV 03/13 2200 2315 Sodium Chloride 500 ML Hydrocodone Bitart/ 2 TAB Q6P PRN 03/14 1200 AC Acetaminophen PO Hydrocodone Bitart/ 1 TAB Q6P PRN 03/13 0200 AC 03/13 Acetaminophen PO 0356 Ibuprofen 600 MG TID 03/14 1430 AC PO Ibuprofen 600 MG TIDPRN PRN 03/13 1430 AC 03/14 PO 03/14 1429 0925 Ketorolac 0 .STK-MED ONE 03/13 2110 DC Tromethamine .ROUTE Ketorolac 30 MG ONCE ONE 03/13 2100 DC 03/13 Tromethamine IV 03/13 2101 2117 Lidocaine 1 PAT DAILY PRN 03/13 0200 AC 03/13 EXT 0338 Meperidine HCl 0 .STK-MED ONE 03/134 DC .ROUTE Meperidine HCl 25 MG ONCE ONE 03/13 2100 DC 03/13 IV 03/13 Morphine Sulfate 4 MG Q4P PRN 03/13 1115 DC 03/14 IV 0638 Last 24 Hrs of Lab/Juvencio Results Last 24 Hrs of Labs/Mics: Laboratory Tests 03/14/18 0635: CBC w Diff NO MAN DIFF REQ, RBC 3.90 L, MCV 79.7 L, MCH 25.9 L, MCHC 32.4 L, RDW 15.5 H, MPV 10.7 H, Gran % 75.9 H, Lymphocytes % 13.1 L, Monocytes % 9.5 H, Eosinophils % 1.3, Basophils % 0.2, Absolute Granulocytes 8.9 H, Absolute Lymphocytes 1.5, Absolute Monocytes 1.1 H, Absolute Eosinophils 0.2, Absolute Basophils 0 03/13/18 1755: APTT 30 Assessment/Plan Assessment: 37-year-old female s/p with viable baby 4 weeks ago came to [place] ER with complaints of shortness of breath and found to have bilateral pulmonary embolism. Problems: 1. Bilateral PE Plan: * Eliquis 10mg PO BID * Wean off O2 as tolerated * Pain control with Vicodin 5/325mg, 2 tab po q6h prn * Echo did not show R heart strain * BLE Doppler negative for DVT's Code-full code Diet heart healthy diet Problem List: 1. Hyperemesis gravidarum 2. Wound dehiscence 3. Dyspnea 4. Bilateral pulmonary embolism Pain Ratin Pain Location: chest Pain Goal: Pain 4 or less Pain Plan: Per pathway Tomorrow's Labs & Rationales: CBC
[2018-03-14 14:31] VITALS: BP 100/58
[2018-03-14 23:26] VITALS: BP 96/58
[2018-03-15 07:01] VITALS: BP 100/60
--- NOTE | 2018-03-15 07:56 | PN- Housestaff ---
Giovanni Meneses 03/15/18 0755: Subjective Follow-up For: Bilateral pulmonary embolism Subjective: Patient was seen and examined lying in bed. Per nursing patient desaturated to 80's yesterday night while on oxygen. Patient still complains of shortness of breath. She talks very slowly, seems a bit somnolent. Her concern is when returning home how will she know if she desaturates again. It is explained that she can purchase a finger O2 saturation monitor. She still has left-sided chest pain, which she believes is well controlled with Vicodin or Percocet. She denies dizziness, blurry vision, chest tightness, palpitations, nausea, vomiting. Review of Systems Constitutional: Reports: see HPI. Objective Last 24 Hrs of Vital Signs/I&O Vital Signs Date Time Temp Pulse Resp B/P B/P Pulse O2 O2 Flow FiO2 Mean Ox Delivery Rate 03/15 0701 98.5 96 20 100/60 94 Nasal 2.0L Cannula 03/15 0000 96 Nasal 2.0L Cannula 03/14 2326 98.6 103 18 96/58 91 Room Air 03/14 1431 98.9 105 18 100/58 94 Nasal Cannula Intake & Output 03/15 1600 03/15 0800 03/15 0000 Intake Total 100 Output Total Balance 100 Intake, Oral 100 Physical Exam General Appearance: Oriented X3, Cooperative, Mild Distress, Slightly somnolent Skin Temp/Moisture Exam: Warm/Dry HEENT: Atraumatic, EOMI Neck: Supple Cardiovascular: Regular Rate, Normal S1, Normal S2 Lungs: Diminished breath sounds bilaterally Abdomen: Soft, No Tenderness, Surgical scar () healing well Neurological: Normal Speech Extremities: Normal Pulses, No Tenderness/Swelling Current Medications: Current Medications Sig/Olinda Start time Last Medication Dose Route Stop Time Status Admin Acetaminophen 650 MG Q6P PRN 03/13 0200 AC PO Apixaban 10 MG BID 03/13 2100 AC 03/15 PO 1008 Hydrocodone Bitart/ 2 TAB Q6P PRN 03/14 1200 AC Acetaminophen PO Hydrocodone Bitart/ 1 TAB Q6P PRN 03/13 0200 AC 03/15 Acetaminophen PO 0701 Ibuprofen 600 MG TID 03/14 1430 AC 03/15 PO 1008 Ibuprofen 600 MG TIDPRN PRN 03/13 1430 DC 03/14 PO 03/14 1429 0925 Lidocaine 1 PAT DAILY PRN 03/13 0200 AC 03/13 EXT 0338 Morphine Sulfate 4 MG Q4P PRN 03/13 1115 DC 03/14 IV 0638 Omeprazole 20 MG DAILY AC 03/15 0900 AC 03/15 PO 1008 Last 24 Hrs of Lab/Juvencio Results Last 24 Hrs of Labs/Mics: Laboratory Tests 03/15/18 0610: CBC w Diff NO MAN DIFF REQ, RBC 3.73 L, MCV 80.3 L, MCH 25.6 L, MCHC 31.8 L, RDW 15.2 H, MPV 10.5 H, Gran % 73.5, Lymphocytes % 12.5 L, Monocytes % 10.3 H, Eosinophils % 3.3, Basophils % 0.4, Absolute Granulocytes 8.3 H, Absolute Lymphocytes 1.4, Absolute Monocytes 1.2 H, Absolute Eosinophils 0.4, Absolute Basophils 0 Assessment/Plan Assessment: Patient is a 37-year-old female with past medical history of section 3 , 4 weeks , who presents to the ED with 1 day of shortness of breath and bilateral back pain, left greater than right. The patient was in her normal uncomplicated state of health until this morning, at which time she experienced abrupt onset shortness of breath, especially worse when lying down. CXR: 03/15/18 1. Progressive consolidation is seen in the left lung base with associated small left pleural effusion. 2. Increased opacity in the right lung base, most likely related to atelectasis and trace effusion. 3. Central vascular congestion. No overt pulmonary edema. Problem List: #Bilateral pulmonary embolism #Elevated white count Plan: -Wean off oxygen as tolerated per pulmonary by assessing O2 saturations with ambulation on room air per pulmonary -Outpatient follow-up with hematology -Follow-up hypercoagulable profile -Stopped cardiac monitoring -Continue Eliquis 10 mg p.o. twice daily -Start Percocet every 6h as needed to improve pain control -Chest x-ray PA/lateral showed a small left pleural effusion, progressive consolidation in left lung base, right atelectasis in the right lung, central venous congestion, no overt pulmonary edema Heart healthy diet DVT ppx Code Problem List: 1. Bilateral pulmonary embolism Pain Ratin Pain Location: Left side chest more than right Pain Goal: Remain pain free Pain Plan: Per pathway Tomorrow's Labs & Rationales: None Waiting on hypercoaguable profile Ebony SPAULDING,Lilly 03/15/18 1027: Attending MD Review Statement Attending Statement Attending MD Statement: examined this patient, discuss w/resident/PA/SECURITY FLEX UTILITY OFFICER, agreed w/resident/PA/SECURITY FLEX UTILITY OFFICER, reviewed EMR data (avail), discussed with nursing, discussed with case mgmt, reviewed images Attending Assessment/Plan: Patient is extremely anxious. She says that she desaturated overnight although we do not have any documentation of the same. She spoke to Dr. Cuellar and we are going to repeat the chest x-ray PA and lateral. We stopped the telemetry monitors that have been no events and her echocardiogram showed normal RV systolic pressures. She is a 37-year-old status post recent with bilateral pulmonary embolism now on Eliquis. The main issue has been oxygenation and pain control. We are weaning off the oxygen and checking a room air sat and sat with ambulation. Will also follow-up on the chest x-ray. If we can get her pain under control, and she does not require oxygen and anticipate discharge in a.m. with outpatient follow-up.
[2018-03-15 08:11] LABS: ABSOLUTE BASOPHIL COUNT 0 /CUMM (0.0-0.2); ABSOLUTE EOSINOPHIL COUNT 0.4 /CUMM (0.0-0.7); ABSOLUTE GRANULOCYTE CT 8.3 /CUMM (1.4-6.5); ABSOLUTE LYMPH COUNT 1.4 /CUMM (1.2-3.4); ABSOLUTE MONOCYTE COUNT 1.2 /CUMM (0.10-0.60); BASOPHIL % 0.4 % (0.0-2.0); EOSINOPHIL % 3.3 % (0-5); GRANULOCYTE % 73.5 % (42.2-75.2); MEAN CORPUSCULAR HGB 25.6 PG (27.0-31.0); MEAN CORPUSCULAR HGB CONC 31.8 G/DL (33.0-37.0); MEAN CORPUSCULAR VOLUME 80.3 FL (81.0-99.0); MEAN PLATELET VOLUME 10.5 FL (7.4-10.4); PLATELET COUNT 240 /CUMM (130-400); RBC DISTRIBUTION WIDTH 15.2 % (11.5-14.5); RED BLOOD CELL CT 3.73 /CUMM (4.20-5.40); WHITE BLOOD CELL COUNT 11.3 /CUMM (4.8-10.8)
--- NOTE | 2018-03-15 09:13 | PN- Pulmonary ---
Subjective HPI/Critical Care Issues: pt seen and examined she is able to take deeper breaths and the pain is better controlled she reports a brief episode of desaturation, will inquire with nursing staff no n/v/d/c no cp no cheema Objective Current Medications: Current Medications Sig/Olinda Start time Last Medication Dose Route Stop Time Status Admin Acetaminophen 650 MG Q6P PRN 03/13 0200 AC PO Apixaban 10 MG BID 03/13 2100 AC 03/14 PO 2055 Hydrocodone Bitart/ 2 TAB Q6P PRN 03/14 1200 AC Acetaminophen PO Hydrocodone Bitart/ 1 TAB Q6P PRN 03/13 0200 AC 03/15 Acetaminophen PO 0701 Ibuprofen 600 MG TID 03/14 1430 AC 03/14 PO 1705 Ibuprofen 600 MG TIDPRN PRN 03/13 1430 DC 03/14 PO 03/14 1429 0925 Lidocaine 1 PAT DAILY PRN 03/13 0200 AC 03/13 EXT 0338 Morphine Sulfate 4 MG Q4P PRN 03/13 1115 DC 03/14 IV 0638 Omeprazole 20 MG DAILY AC 03/15 0900 AC PO Vital Signs & I&O Last 24 Hrs of Vitals and I&O: Vital Signs Date Time Temp Pulse Resp B/P B/P Pulse O2 O2 Flow FiO2 Mean Ox Delivery Rate 03/15 0701 98.5 96 20 100/60 94 Nasal 2.0L Cannula 03/15 0000 96 Nasal 2.0L Cannula 03/14 2326 98.6 103 18 96/58 91 Room Air 03/14 1431 98.9 105 18 100/58 94 Nasal Cannula Intake & Output 03/15 1600 03/15 0800 03/15 0000 Intake Total 100 Output Total Balance 100 Intake, Oral 100 Exam Other Physical Findings: gen aaox3 heent nasal cannula cvs s1, s2 lungs rare bibasilar rhonchi abd soft, bs+, healing scar ext without edema Results Last 24 Hrs of Lab Results: Laboratory Tests 03/15/18 0610: CBC w Diff NO MAN DIFF REQ, RBC 3.73 L, MCV 80.3 L, MCH 25.6 L, MCHC 31.8 L, RDW 15.2 H, MPV 10.5 H, Gran % 73.5, Lymphocytes % 12.5 L, Monocytes % 10.3 H, Eosinophils % 3.3, Basophils % 0.4, Absolute Granulocytes 8.3 H, Absolute Lymphocytes 1.4, Absolute Monocytes 1.2 H, Absolute Eosinophils 0.4, Absolute Basophils 0 Impression/Plan Impression/Plan Impression/Plan: Impression 37 year old woman * RUL & LLL PE without right heart strain - may have been provoked by recent c- section * LLL consolidation likely secondary to atelectasis vs pulmonary infarction ( less likely), small left pleural effusion Plan -check CXR PA/Lateral -assess oxygen saturation with ambulation on room air -continue anti-coagulation - please inquire if eliquis will be covered on an outpatient basis -f/u hypercoagulable profile for genetic predisposition -f/u with a greige goods marker as outpatient -improve pain control in order to participate in effective incentive spirometry, consider tramadol, continue NSAIDS, would use a standing dose for 48-72 hours, then can do prn -personally instructed and demonstrated proper incentive spirometry use attempt to discontinue oxygen dc planning with hematology f/u out of bed as tolerated
--- NOTE | 2018-03-15 10:50 | RADIOLOGY REPORT ---
EXAMINATION: XR CHEST CLINICAL INFORMATION: Presumptive diagnosis of pleural effusion. Desaturation to 80. COMPARISON: Chest x-ray dated 02/20/2018. TECHNIQUE: AP portable view of the chest. FINDINGS: EKG leads overlie the chest. The cardiomediastinal silhouette is enlarged. There are bilateral small pleural effusions and associated bibasilar opacities, new when compared to the prior exam. There is central vascular congestion and slight increase in perihilar reticular opacities. No Tomas B-lines or redistribution of the vessels is seen. No pneumothorax is noted. Bony structures are unremarkable. IMPRESSION: 1. Progressive consolidation is seen in the left lung base with associated small left pleural effusion. 2. Increased opacity in the right lung base, most likely related to atelectasis and trace effusion. 3. Central vascular congestion. No overt pulmonary edema.
[2018-03-15 14:58] VITALS: BP 102/64
[2018-03-15] MEDS ORDERED: PERCOCET 5-3251 EACH PO (18:21)
[2018-03-15] MEDS ORDERED: AUGMENTIN 875-1 EACH PO (18:21)
[2018-03-15 23:23] VITALS: BP 111/56
--- NOTE | 2018-03-16 05:16 | Patient Discharge Instructions ---
Discharge Instructions General Discharge Information You were seen/treated for: Bilateral Pumonary Embolism Watch for these problems: Please return to the ER in case of any chest pain, shortness of breath, lightheadedness/dizziness or lower extremity edema/swelling. Special Instructions: Please follow-up with your PCP, principal software architect and fee clerk within a week after discharge. Diet Continue normal diet: Yes Activity Full Activity/No Limits: Yes Acute Coronary Syndrome Inclusion Criteria At DC or during hospital stay patient has or had the following: ACS DIAGNOSIS No Discharge Core Measures Meds if any: Prescribed or Continued at Discharge Meds if any: NOT Prescribed or Continued at Discharge Congestive Heart Failure Inclusion Criteria At DC or during hospital stay patient has or had the following: CHF DIAGNOSIS No Discharge Core Measures Meds if any: Prescribed or Continued at Discharge Meds if any: NOT Prescribed or Continued at Discharge Cerebrovascular accident Inclusion Criteria At DC or during hospital stay patient has or had the following: CVA/TIA Diagnosis No Discharge Core Measures Meds if any: Prescribed or Continued at Discharge Meds if any: NOT Prescribed or Continued at Discharge Venous thromboembolism Inclusion Criteria VTE Diagnosis Yes VTE Type Pulmonary Embolism VTE Confirmed by (Test) CT CHEST ANGIOGRAM Discharge Core Measures - Per Current guidelines, there needs to be overlap - treatment for the first 5 days of Warfarin therapy. - If discharged on Warfarin prior to 5 days of - overlap therapy, the patient will need to be - assessed for post discharge needs including - *Post discharge parental anticoagulation - *Warfarin and/or parental anticoagulation education - *Follow up date to check INR post discharge At least 5 days overlap therapy as Inpatient No Meds if any: Prescribed or Continued at Discharge Note: Overlap Therapy is Warfarin and Anticoagulant Meds if any: NOT Prescribed or Continued at Discharge
[2018-03-16 06:38] VITALS: BP 98/56
--- NOTE | 2018-03-16 07:14 | PN- Housestaff ---
Giovanni Meneses 03/16/18 0714: Subjective Follow-up For: Bilateral pulmonary embolism Subjective: Patient was seen and examined lying in bed. Per nursing patient stayed was saturating at 91 on room air. Patient reports feeling much better. She denies any chest tightness and feels her breathing has much improved. Review of Systems Constitutional: Reports: see HPI. Objective Last 24 Hrs of Vital Signs/I&O Vital Signs Date Time Temp Pulse Resp B/P B/P Pulse O2 O2 Flow FiO2 Mean Ox Delivery Rate 03/16 0638 97.9 78 18 98/56 91 Room Air 03/15 2323 98.3 83 18 111/56 95 Room Air Intake & Output 03/16 1600 03/16 0800 03/16 0000 Intake Total Output Total Balance Patient 272 lb Weight Physical Exam General Appearance: Alert, Oriented X3, Cooperative Skin Temp/Moisture Exam: Warm/Dry HEENT: Atraumatic, EOMI Neck: Supple Cardiovascular: Regular Rate, Normal S1, Normal S2 Lungs: Clear to Auscultation, Slightly Diminished Abdomen: Soft, No Tenderness, surgical scar () healing well Neurological: Normal Speech Extremities: Normal Pulses, No Tenderness/Swelling Current Medications: Current Medications Sig/Olinda Start time Last Medication Dose Route Stop Time Status Admin Acetaminophen 650 MG Q6P PRN 03/13 0200 DCD PO Amoxicillin/ 875 MG Q12H 03/16 0700 DCD 03/16 Clavulanate Potassium PO 0613 Amoxicillin/ 875 MG Q12H 03/15 1402 DC 03/15 Clavulanate Potassium PO 1617 Apixaban 10 MG BID 03/13 2100 DCD 03/16 PO 0856 Docusate Sodium 100 MG DAILY NEEDED PRN 03/15 1730 DCD PO Ibuprofen 600 MG TID 03/14 1430 DCD 03/16 PO 0856 Lidocaine 1 PAT DAILY PRN 03/13 0200 DCD 03/13 EXT 0338 Oxycodone/ 1 TAB Q6PRN PRN 03/15 1145 DCD 03/16 Acetaminophen PO 1018 Senna/Docusate Sodium 1 TAB BID PRN 03/15 1730 DCD PO Last 24 Hrs of Lab/Juvencio Results Last 24 Hrs of Labs/Mics: Laboratory Tests 03/16/18 0604: Anion Gap 6, Estimated GFR > 60, BUN/Creatinine Ratio 17.1, CBC w Diff NO MAN DIFF REQ, RBC 3.74 L, MCV 79.3 L, MCH 26.1 L, MCHC 32.9 L, RDW 15.2 H, MPV 10.3, Gran % 66.9, Lymphocytes % 17.5 L, Monocytes % 9.0, Eosinophils % 6.3 H, Basophils % 0.3, Absolute Granulocytes 5.3, Absolute Lymphocytes 1.4, Absolute Monocytes 0.7 H, Absolute Eosinophils 0.5, Absolute Basophils 0 Assessment/Plan Assessment: Assessment: Patient is a 37-year-old female with past medical history of section 3 , 4 weeks , who presents to the ED with 1 day of shortness of breath and bilateral back pain, left greater than right. She was diagnosed with pulmonary bilateral pulmonary embolism with chest CTA. CXR: 03/15/18 1. Progressive consolidation is seen in the left lung base with associated small left pleural effusion. 2. Increased opacity in the right lung base, most likely related to atelectasis and trace effusion. 3. Central vascular congestion. No overt pulmonary edema. - consolidation and pleural effusion seen on yesterday's cxr could be 2/2 pulmonary congestion or acute infectious process - will treat for pneumonia (CAP) to cover possibility of infection - vitals stable, no white count Problem List: #Bilateral pulmonary embolism #Elevated white count Plan: -Outpatient follow-up with hematology and follow up on hypercoag profiles -Outpatient cxr in one week and followup with pulmonology -Continue Eliquis -Pain management via Percocet every 6h as needed to improve pain control Heart healthy diet DVT ppx Cod Problem List: 1. Bilateral pulmonary embolism Pain Ratin Pain Location: Left side chest Pain Goal: Remain pain free Pain Plan: Per pathway Tomorrow's Labs & Rationales: None Ebony SPAULDING,Lilly 03/16/18 1033: Attending MD Review Statement Attending Statement Attending MD Statement: examined this patient, discuss w/resident/PA/FRONT OF HOUSE MANAGER, agreed w/resident/PA/FRONT OF HOUSE MANAGER, reviewed EMR data (avail), discussed with nursing, discussed with case mgmt, reviewed images Attending Assessment/Plan: Pt seen and examined. She is doing very well. She walked all around the unit without any need for oxygen. We have started on p.o. Augmentin for the consolidation associated with this pulmonary embolism and leukocytosis. She stable to leave today she will leave on oral anticoagulation with outpatient follow-up. She is being referred to Dr. Hare for PCP and Dr. Cuellar. She will also get a repeat chest x-ray in a week.
[2018-03-16] MEDS ORDERED: AUGMENTIN 875-1 EACH PO ×2 (07:25→09:57)
[2018-03-16] MEDS ORDERED: PERCOCET 5-3251 EACH PO ×2 (07:25→09:49)
[2018-03-16 07:43] LABS: ABSOLUTE BASOPHIL COUNT 0 /CUMM (0.0-0.2); ABSOLUTE EOSINOPHIL COUNT 0.5 /CUMM (0.0-0.7); ABSOLUTE GRANULOCYTE CT 5.3 /CUMM (1.4-6.5); ABSOLUTE LYMPH COUNT 1.4 /CUMM (1.2-3.4); ABSOLUTE MONOCYTE COUNT 0.7 /CUMM (0.10-0.60); BASOPHIL % 0.3 % (0.0-2.0); EOSINOPHIL % 6.3 % (0-5); GRANULOCYTE % 66.9 % (42.2-75.2); HEMATOCRIT 29.7 % (37-47); MEAN CORPUSCULAR HGB 26.1 PG (27.0-31.0); MEAN CORPUSCULAR HGB CONC 32.9 G/DL (33.0-37.0); MEAN CORPUSCULAR VOLUME 79.3 FL (81.0-99.0); MEAN PLATELET VOLUME 10.3 FL (7.4-10.4); PLATELET COUNT 264 /CUMM (130-400); RBC DISTRIBUTION WIDTH 15.2 % (11.5-14.5); RED BLOOD CELL CT 3.74 /CUMM (4.20-5.40)
--- NOTE | 2018-03-16 08:56 | PN- Pulmonary ---
Subjective HPI/Critical Care Issues: pt seen and examined still with difficulty taking deep breaths cxr reviewed afebrile wbc normalized Objective Current Medications: Current Medications Sig/Olinda Start time Last Medication Dose Route Stop Time Status Admin Acetaminophen 650 MG Q6P PRN 03/13 0200 AC PO Amoxicillin/ 875 MG Q12H 03/16 0700 AC 03/16 Clavulanate Potassium PO 0613 Amoxicillin/ 875 MG Q12H 03/15 1402 DC 03/15 Clavulanate Potassium PO 1617 Apixaban 10 MG BID 03/13 2100 AC 03/15 PO 2059 Docusate Sodium 100 MG DAILY NEEDED PRN 03/15 1730 AC PO Hydrocodone Bitart/ 2 TAB Q6P PRN 03/14 1200 DC Acetaminophen PO Hydrocodone Bitart/ 1 TAB Q6P PRN 03/13 0200 DC 03/15 Acetaminophen PO 0701 Ibuprofen 600 MG TID 03/14 1430 AC 03/15 PO 2059 Lidocaine 1 PAT DAILY PRN 03/13 0200 AC 03/13 EXT 0338 Omeprazole 20 MG DAILY AC 03/15 0900 DC PO Oxycodone/ 1 TAB Q6PRN PRN 03/15 1145 AC Acetaminophen PO Senna/Docusate Sodium 1 TAB BID PRN 03/15 1730 AC PO Vital Signs & I&O Last 24 Hrs of Vitals and I&O: Vital Signs Date Time Temp Pulse Resp B/P B/P Pulse O2 O2 Flow FiO2 Mean Ox Delivery Rate 03/16 0638 97.9 78 18 98/56 91 Room Air 03/15 2323 98.3 83 18 111/56 95 Room Air 03/15 2148 97 Nasal 2.0L Cannula 03/15 1458 98.7 84 18 102/64 97 Room Air Intake & Output 03/16 1600 03/16 0800 03/16 0000 Intake Total Output Total Balance Patient 272 lb Weight Exam Other Physical Findings: gen aaox3 heent nasal cannula cvs s1, s2 lungs rare bibasilar rhonchi abd soft, bs+, healing scar ext without edema Results Last 24 Hrs of Lab Results: Laboratory Tests 03/16/18 0604: Anion Gap 6, Estimated GFR > 60, BUN/Creatinine Ratio 17.1, CBC w Diff NO MAN DIFF REQ, RBC 3.74 L, MCV 79.3 L, MCH 26.1 L, MCHC 32.9 L, RDW 15.2 H, MPV 10.3, Gran % 66.9, Lymphocytes % 17.5 L, Monocytes % 9.0, Eosinophils % 6.3 H, Basophils % 0.3, Absolute Granulocytes 5.3, Absolute Lymphocytes 1.4, Absolute Monocytes 0.7 H, Absolute Eosinophils 0.5, Absolute Basophils 0 Impression/Plan Impression/Plan Impression/Plan: Impression 37 year old woman * RUL & LLL PE without right heart strain - may have been provoked by recent c- section * LLL consolidation likely secondary to atelectasis vs pulmonary infarction ( less likely), small left pleural effusion Plan -Augmentin started empirically given consolidation and leukocytosis (now resolved), reasonable to complete course -re-assess oxygen saturation with ambulation on room air -continue anti-coagulation - please inquire if eliquis will be covered on an outpatient basis -f/u hypercoagulable profile for genetic predisposition -f/u with a information coder as outpatient -pain control dc planning with hematology f/u out of bed as tolerated DC planning
[2018-03-16] MEDS ORDERED: ELIQUIS5 M1 PO (09:57)
--- NOTE | 2018-03-16 15:21 | Discharge Summary ---
Visit Information Visit Dates Admission Date: 03/12/18 Discharge Date: 03/16/18 Hospital Course Course Attending Physician: Ebony SPAULDING,Lilly Paris Primary Care Physician: Patient Has No Primary Care Dr Consulting Request: Consulting Specialty: Pulmonary Disease Hospital Course: Patient is a 37-year-old female () with past medical history of section 3, who presents 4 weeks at ED with 1 day abrupt onset of shortness of breath and bilateral back pain, left greater than right, kali when lying down. 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 WBC was elevated at 11.4, CTA showed acute pulmonary emboli in the right upper and lower left lobes and EKG should sinus tachycardia with no RV strain, while she had episodes of tachypnea. She was originally started on heparin but was changed to Eliquis. Per pulmonary the CXR suggested possible pneumonia based and she was started on a course of Augmentin to be continued PO upon discharge. For pain management she was treated with Motrin, Vicodin then Percocet. Her Oxygen was decreased from 2L O2 nasal canula to room air where she was saturating at 91%. Pt reported a significant improvement in symptoms since admission and vitals were stable upon discharge. During her hospital course she given CTA chest, an echocardiogram, a venous doppler of lower legs bilaterally, and CXR PA/lateral. CXR 03/15/18 1. Progressive consolidation is seen in the left lung base with associated small left pleural effusion. 2. Increased opacity in the right lung base, most likely related to atelectasis and trace effusion. 3. Central vascular congestion. No overt pulmonary edema. Echocardiogram 03/13/18 CONCLUSIONS The right ventricle is not well visualized but appears grossly normal in size and function. RVSP 25 mmHg, therefore normal. Venous Doppler 03/13/18 IMPRESSION: No evidence of deep venous thrombosis involving the bilateral lower extremities. CTA Chest 03/12/18 IMPRESSION: 1. Acute pulmonary emboli in the right upper and left lower lobes. Overall burden is relatively small. No evidence of heart strain. 2. Bibasilar atelectasis, more pronounced in the left lower lobe. Focal dense opacity in the left lung base likely corresponds to dense atelectasis, though a small developing infarct is also possible. 3. Trace left pleural effusion VTE: positive Allergies: Coded Allergies: No Known Allergies (07/17/17) Disposition Summary Disposition Principal Diagnosis: Bilateral pulmonary embolism Additional Diagnosis: Possible Community Acquired Pneuomonia Discharge Disposition: home or self care Discharge Instructions General Discharge Information Code Status: Full Code Patient's Diet: Heart Healthy Patient's Activity: Self limited, As tolerated Follow-Up Instructions/Appts: Follow up with PCP, podiatry assistant, and varnish cooker within 1-2 weeks of discharge. Follow up CXR witin 1 week, will be sent to Dr. Cuellar's office. Medications at Discharge Discharge Medications: Stop taking the following medications: Ibuprofen (Ibuprofen) 800 MG TABLET ORAL EVERY SIX HOURS NEEDED as needed for UTERINE CRAMPING Qty = 30 Oxycodone HCl/Acetaminophen (Percocet 5-325 MG Tablet) 5 MG-325 MG TABLET ORAL EVERY 4 HOURS NEEDED as needed for PAIN SCALE 4-6 (MODERATE) Qty = 30 Start taking the following new medications: Oxycodone HCl/Acetaminophen (Percocet 5-325 MG Tablet) 5 MG-325 MG TABLET 1 Tablet ORAL TWICE DAILY as needed for pain Qty = 20 No Refills Instructions: . Comments: Last Taken: 03/16/18 Time: 10:00 AM Amoxicillin/Potassium Clav (Augmentin 875-125 Tablet) 875 MG-125 MG TABLET 1 Tablet ORAL TWICE DAILY Qty = 7 No Refills Instructions: . Comments: Last Taken: 03/16/18 Time: 6:00 AM Apixaban (Eliquis) 5 MG TABLET 0 ORAL TWICE DAILY Qty = 70 No Refills Instructions: PELASE TAKE 2 TAB TWICE DAILY TILL 03/19/18 THEN START TAKING 1 TAB TWICE A DAY.. Comments: Last Taken: 03/16/16 Time: 9:00 AM Copies To: Payam SPAULDING,Payam; Sean Cuellar MD
== END 2018-03-16 12:10 | DRG 776 ==
LOC: ERH 18:07 → ERHI 23:46 → 1NO 23:46 → EDBEDREQ 03-13 02:27 → ENRESERV 03-13 02:28 → 1NO 03-13 04:04 → ENPENDDIS 03-16 09:58 → 1NO 03-16 12:10
PROVIDERS: General Practice; Physician Assistant; Preventive Medicine Public Health & General Preventive Medicine; Student in an Organized Health Care Education/Training Program
DX: O88.23 Thromboembolism in the puerperium (principal); J18.9 Pneumonia, unspecified organism; J98.11 Atelectasis
CPT/HCPCS: 1NP; ERO; 36592; 71046; 82436; 93005; 93010; 93306; 93970; 96374; 96375; 99291; J1644; J1885

== ENCOUNTER 2018-04-05 21:02 | Inpatient (IN) | payer OTHER ==
[~2018-04-05] VITALS: Ht 165.1 cm; Wt 122.5 kg
[~2018-04-05 21:02] MED LIST changes: +AUGMENTIN 875-1 EACH PO; +ELIQUIS5 M1 PO
--- NOTE | 2018-04-05 22:36 | ED CARDIAC/CP/PALPITATIONS ---
History of Present Illness General Chief Complaint: General Adult Stated Complaint: RT LUNG PAIN; PE? Source: patient, old records Exam Limitations: no limitations Vital Signs & Intake/Output Vital Signs & Intake/Output Vital Signs Date Time Temp Pulse Resp B/P B/P Pulse O2 O2 Flow FiO2 Mean Ox Delivery Rate 04/05 2352 98.3 62 18 115/55 98 Room Air 04/05 2224 Room Air 04/05 2124 98.6 65 18 115/80 98 Room Air ED Intake and Output 04/06 0000 04/05 1200 Intake Total 0 Output Total 0 Balance 0 Intake, Oral 0 Output, Urine 0 Patient 270 lb Weight Weight Reported by Patient Measurement Method Allergies Coded Allergies: No Known Allergies (07/17/17) Reconcile Medications Amoxicillin/Potassium Clav (Augmentin 875-125 Tablet) 875 MG-125 MG TABLET 1 TAB PO BID PNEUMONIA . Apixaban (Eliquis) 5 MG TABLET 0 PO BID PE PELASE TAKE 2 TAB TWICE DAILY TILL 03/19/18 THEN START TAKING 1 TAB TWICE A DAY.. Oxycodone HCl/Acetaminophen (Percocet 5-325 MG Tablet) 5 MG-325 MG TABLET 1 TAB PO BID PRN pain . Triage Note: PT SENT TO ED BY PCP TO R/O PE. PMH OF MERLINE PE'S S/P SECTION ON 02/08/18. STARTED ELEQUIS ON 03/14/18. IS TAKING 5 MG BID. O2 SAT 98% ON RA. DENIES SOB. PAIN IS IN ;OW RT SHOULDER BLADE LATERAL SIDE. NO CHANGE IN PAIN ON PALPATION TO THAT AREA. PAIN IN THAT AREA WHEN SHE TURNS OR TRIES TO MOVE HER RT ARM. DENIES INJURY Triage Nurses Notes Reviewed? yes Onset: Gradual Duration: day(s): Timing: recent history Quality/Severity: moderate Location: back : No Patient currently breastfeeds: No HPI: 37yo female with hx of recent bilateral PEs (diagnosed 03/12/18) on eliquis presents to ED complaining of right upper back pain radiating to chest x 2-3 days. Patient reports this pain feels the same as pain she had on her left side when she was diagnosed with the PEs. Her pain with initial PEs resolved prior to her being discharged from the hospital. Now pain has reoccurred however and a new spot. Patient states that she does not have dyspnea currently which she was experiencing at time of PE diagnosis last month. Patient developed PE's following . She reports her pain is worse with movement of right arm and right trunk. Patient denies cough, hemoptysis, leg swelling, recent travel, abdominal pain. (Eve Jenkins) Past History Travel History Traveled to [place] past 21 day No Medical History Any Pertinent Medical History? 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 No (Eve Jenkins) Review of Systems Review of Systems Constitutional: Reports: no symptoms. EENTM: Reports: no symptoms. Respiratory: Reports: see HPI. Cardiovascular: Reports: no symptoms. GI: Reports: no symptoms. Genitourinary: Reports: no symptoms. Musculoskeletal: Reports: see HPI. Skin: Reports: no symptoms. Neurological/Psychological: Reports: no symptoms. Hematologic/Endocrine: Reports: no symptoms. Immunologic/Allergic: Reports: no symptoms. All Other Systems: Reviewed and Negative (Eve Jenkins) Physical Exam Physical Exam General Appearance: well developed/nourished, no apparent distress, alert, awake Head: atraumatic, normal appearance Eyes: Bilateral: normal appearance. Ears, Nose, Throat: hearing grossly normal Neck: normal inspection, supple, full range of motion Respiratory: normal breath sounds, chest non-tender, no respiratory distress, lungs clear Cardiovascular: regular rate/rhythm Peripheral Pulses: 2+ radial (R), 2+ radial (L) Back: normal inspection, normal range of motion, no vertebral tenderness Extremities: normal inspection, normal range of motion, no edema Neurologic/Psych: awake, alert, oriented x 3 Skin: intact, normal color, warm/dry Core Measures ACS in differential dx? No CVA/TIA Diagnosis No Sepsis Present: No Sepsis Focused Exam Completed? No (Rosy MCWILLIAMS,Eve He) Progress Differential Diagnosis: AMI, costochondritis, musculoskeletal pain, pneumonia, pulmonary embolism, rib fracture, unstable angina Plan of Care: Orders Procedure Date/time Status CBC WITHOUT DIFFERENTIAL 04/07 600 Active BASIC ELECTROLYTES PLUS BUN&CR 04/07 600 Active Regular Diet 04/06 B Active Lab Add-on Test 04/06 220 Active Pathway - chart 04/06 216 Active House Staff 04/06 216 Active Code Status 04/06 216 Active Patient Data 04/06 212 Active OXYGEN SETUP (GEN) 04/06 158 Active Saline Lock 04/06 158 Active Admit to inpatient 04/06 158 Active Vital Signs 04/06 158 Active Activity/Ambulation 04/06 158 Active Code Status 04/06 158 Complete PARTIAL THROMBOPLASTIN TIME 04/06 157 Complete PROTHROMBIN TIME 04/06 157 Complete VTE Mechanical Prophylaxis 04/06 UNK Active TOTAL IRON BINDING CAPACITY 04/05 233 Active FERRITIN 04/05 233 Active SERUM IRON 04/05 233 Active TROPONIN LEVEL 04/05 223 Active HUMAN BETA HCG SCREEN 04/05 2234 Active COMPREHENSIVE METABOLIC PANEL 04/05 223 Active CBC WITHOUT DIFFERENTIAL 04/05 223 Complete EKG 04/05 2234 Active Intake & Output 04/05 2223 Active Current Medications Sig/Olinda Start time Last Medication Dose Stop Time Status Admin Acetaminophen 650 MG Q6P PRN 04/06 0215 AC (Tylenol) Heparin Sodium 25,000 UNIT Q24H 04/06 0145 AC (Porcine) (Heparin) Sodium Chloride 500 ML Ketorolac 30 MG ONCE ONE 04/06 0045 CAN Tromethamine 04/06 0046 (Toradol) Laboratory Tests 04/06/18 0225: PT 13.4 H, INR 1.23 H, APTT 27 04/05/18 2330: Anion Gap 6, Estimated GFR > 60, BUN/Creatinine Ratio 22.5, Glucose 86, Calcium 9.7, Iron Pending, TIBC Pending, Ferritin Pending, Total Bilirubin 0.1 L, AST 15, ALT 23, Alkaline Phosphatase 82, Troponin I < 0.01, Total Protein 6.8, Albumin 3.8, Globulin 3.0, Albumin/Globulin Ratio 1.3, Total Beta HCG NEGATIVE, CBC w Diff NO MAN DIFF REQ, RBC 3.98 L, MCV 79.8 L, MCH 25.7 L, MCHC 32.3 L, RDW 16.2 H, MPV 10.0, Gran % 52.1, Lymphocytes % 34.5, Monocytes % 7.6, Eosinophils % 5.0, Basophils % 0.8, Absolute Granulocytes 5.0, Absolute Lymphocytes 3.3, Absolute Monocytes 0.7 H, Absolute Eosinophils 0.5, Absolute Basophils 0.1 Given patient's significant history of PEs diagnosed last month Will obtain repeat CTA for further assessment as her right-sided back pain is new. EKG is stable, troponin enzyme is negative. The patient was signed out to Dr. Harley pending CTA. Initial ED EKG: sinus rhythm @59bpm, nonspecific ST changes Prior EKG: unchanged (03/12/18) Hand-Off Endorsed To: Jamil Harley MD Endorsed Time: 53 Pending: CT (Eve Jenkins) Diagnostic Imaging: Viewed by Me: CT Scan. Discussed w/RAD: CT Scan. Radiology Impression: Persistent limited filling to a branch of the left lower lobe pulmonary artery. Newly identified adjacent to this artery is a peripheral wedge-shaped area of lung opacification suspicious for infarction. Previously identified right upper lobe filling defect no longer identified. (Jamil Harley MD) Departure Departure Disposition: STILL A PATIENT Condition: Stable Clinical Impression Primary Impression: Back pain Qualifiers: Back pain location: thoracic back pain Chronicity: acute Back pain laterality: right Qualified Code: M54.6 - Pain in thoracic spine Referrals: Chester Cabrera MD (PCP/Family) Departure Forms: Customer Survey General Discharge Information (Eve Jenkins) Admission Note Spoke With: Dawson Stewart MD Documentation of Exam: Documentation of any treatments & extenuating circumstances including Concerns Regarding Discharge (functional status, medication knowledge or non-compliance, living conditions, etc.) that warrant an admission rather than observation: IV anticoagulation serial lab exam medication adjustment hematology evaluation pulmonary evaluation continuing care discharge planning. PA/BOIL OFF MACHINE OPERATOR CLOTH Co-Sign Statement Statement: ED Attending supervision documentation- x I saw and evaluated the patient. I have also reviewed all the pertinent lab results and diagnostic results. I agree with the findings and the plan of care as documented in the PA's/BOIL OFF MACHINE OPERATOR CLOTH's documentation. Recurrent chest pain similar to previous PE with new L pulmonary infarct. [] I have reviewed the ED Record and agree with the PA's/BOIL OFF MACHINE OPERATOR CLOTH's documentation. [] Additions or exceptions (if any) to the PAs/BOIL OFF MACHINE OPERATOR CLOTH's note and plan are summarized below: [] (Cricket SPAULDING,Jamil) Critical Care Note Critical Care Note Critical Care Time: non-applicable (Rosy MCWILLIAMS,Eve He)
[2018-04-05 23:45] LABS: ABSOLUTE BASOPHIL COUNT 0.1 /CUMM (0.0-0.2); ABSOLUTE EOSINOPHIL COUNT 0.5 /CUMM (0.0-0.7); ABSOLUTE LYMPH COUNT 3.3 /CUMM (1.2-3.4); ABSOLUTE MONOCYTE COUNT 0.7 /CUMM (0.10-0.60); BASOPHIL % 0.8 % (0.0-2.0); GRANULOCYTE % 52.1 % (42.2-75.2); HEMATOCRIT 31.7 % (37-47); MEAN CORPUSCULAR HGB 25.7 PG (27.0-31.0); MEAN CORPUSCULAR HGB CONC 32.3 G/DL (33.0-37.0); MEAN CORPUSCULAR VOLUME 79.8 FL (81.0-99.0); PLATELET COUNT 293 /CUMM (130-400); RBC DISTRIBUTION WIDTH 16.2 % (11.5-14.5); RED BLOOD CELL CT 3.98 /CUMM (4.20-5.40); WHITE BLOOD CELL COUNT 9.6 /CUMM (4.8-10.8)
--- NOTE | 2018-04-06 01:22 | CT SCAN REPORT ---
EXAMINATION: CT PULMONARY EMBOLISM STUDY CLINICAL INFORMATION: Right-sided pain. History of prior pulmonary embolism. COMPARISON: March 12, 2018. TECHNIQUE: Contiguous helical images of the chest were obtained following the administration of IV contrast. Multiplanar reconstructions were performed. MIPS were obtained and reviewed. DLP: 853 mGy-cm. CONTRAST: 65 cc Optiray 320 were administered without incident. FINDINGS: The heart is of normal size. There is no pericardial effusion. There is limited filling to a branch of the pulmonary artery supplying the left lower lobe. Embolism was identified at this location on the prior exam. There is new demonstration of a somewhat wedge-shaped peripheral opacification within the adjacent lung parenchyma at this location. The previously identified filling defect within the right upper lobe has since resolved. There are no chest wall masses. Review of lung windows demonstrates that there are neither pleural effusions nor pneumothoraces. There are no consolidations. There are no pulmonary parenchymal nodules. Limited evaluation of the upper abdomen demonstrates that the liver is of normal size and attenuation without focal lesions. Normal adrenal glands are identified. IMPRESSION: Persistent limited filling to a branch of the left lower lobe pulmonary artery. Newly identified adjacent to this artery is a peripheral wedge-shaped area of lung opacification suspicious for infarction. Previously identified right upper lobe filling defect no longer identified.
--- NOTE | 2018-04-06 02:21 | History & Physical ---
Elenita Frost 04/06/18 0220: General Information and HPI MD Statement: I have seen and personally examined HENRY HARRIS and documented this H&P. The patient is a 37 year old F who presented with a patient stated chief complaint of [right back and chest pain]. Source of Information: patient Exam Limitations: no limitations History of Present Illness: 37-year-old female with a past medical history significant for pulmonary embolus after , discharged from [facility] on March 12, on Eliquis ( started 03/14/18) presents to the emergency department for right-sided back and chest pain 1 day. The patient reports doing well at home in the usual state of health when suddenly she started having right-sided back pain, that was radiating anteriorly to the chest. The pain was fair 9 x 10 intensity, sharp and throbbing pain. She took Percocet which does not help her. The pain was associated with her not being able to move her right arm at all. Patient reports good compliance with her Eliquis. Her last dose was last night at 7 PM after dinner. Patient denies: Shortness of breath, abdominal pain, constipation, diarrhea, fever, chills, nausea, vomiting, dysuria, hematuria, sore throat, arthralgias, myalgias, sick contacts, recent travel, use of oral contraceptive agents Allergies/Medications Allergies: Coded Allergies: No Known Allergies (07/17/17) Past History Travel History Traveled to [place] past 21 day No Medical History Neurological: NONE EENT: NONE Cardiovascular: NONE Respiratory: pulmonary embolism Gastrointestinal: GERD Hepatic: NONE Renal: NONE Musculoskeletal: NONE Psychiatric: NONE Endocrine: NONE Blood Disorders: NONE Cancer(s): 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 Home Who Do You Live With? spouse, child Services at Home: None Primary Language: Togolese Smoking Status: Never Smoked ETOH Use: occasional use Illicit Drug Use: denies illicit drug use Living Will? unknown Functional Ability ADLs Independent: dressing, eating, toileting, bathing. Ambulation: independent IADLs Independent: shopping, housework, finances, food prep, telephone, transportation , medication admin. Review of Systems Review of Systems Constitutional: Reports: see HPI. Exam & Diagnostic Data Last 24 Hrs of Vital Signs/I&O Vital Signs Date Time Temp Pulse Resp B/P B/P Pulse O2 O2 Flow FiO2 Mean Ox Delivery Rate 04/06 0335 98.5 56 18 102/58 100 Room Air 04/05 2352 98.3 62 18 115/55 98 Room Air 04/05 2224 Room Air 04/05 2124 98.6 65 18 115/80 98 Room Air Intake & Output 04/06 0800 04/06 0000 04/05 1600 Intake Total 100 0 Output Total 0 Balance 100 0 Intake, IV 100 Intake, Oral 0 Output, Urine 0 Patient 270 lb 270 lb Weight Weight Reported by Patient Reported by Patient Measurement Method Physical Exam General Appearance Alert, Oriented X3, Cooperative, No Acute Distress Skin No Rashes, No Breakdown, No Significant Lesion Skin Temp/Moisture Exam: Cool/Dry Sepsis Skin Exam (color): Normal for Ethnicity HEENT Atraumatic, PERRLA, EOMI, Mucous Membr. moist/pink Neck Supple, No JVD, No thryomegaly, +2 Carotid Pulse wo Bruit, No LAD Lymphatic Cervical nl Cardiovascular Regular Rate, Normal S1, Normal S2, No Murmurs Lungs Clear to Auscultation, Normal Air Movement Abdomen Normal Bowel Sounds, Soft, No Tenderness, No Hepatospenomegaly, No Masses Neurological Normal Speech, Strength at 5/5 X4 Ext, Normal Tone, Sensation Intact, Cranial Nerves 3-12 NL, Reflexes 2+ Extremities No Clubbing, No Cyanosis, No Edema, Normal Pulses, No Tenderness/ Swelling Vascular Normal Pulses, Pulses Symmetrical Assessment/Plan Assessment: 37-year-old female with a past medical history significant for pulmonary embolus after , discharged from [facility] on March 12, on Eliquis ( started 03/14/18) presents to the emergency department for right-sided back and chest pain 1 day. Vitals: afebrile,115/80, HR 65, 18 RR Labs: WBC 9.6, Hg 10.2, Hct 31.7, plt 293, INR 1.23 Problems: 1. Right Sided Chest Pain 2. Possible Left Lower Lobe Infarction 3. Eliquis failure??? A& P: Pt is having tenderness in mid scapular and lower back on the right side. Although her CT chest shows a site of infartion on the left. A new PE is not likely at this time. She has no family Hx of DVTs. - Admit to general medicine floor. -Give trial of flexeril, muscle relaxant - Obtain Pulm consult - Maurice. IV heparin for now. Consider resuming her eliquis in am. She last took her eliquis ta 7pm last night. - Maurice. home medications -Diet: regular - DVT PX: IV heparin -Code status: full code As Ranked By This Provider Problem List: 1. Back pain Qualifiers Back pain location: thoracic back pain Chronicity: acute Back pain laterality: right Qualified Code: M54.6 - Pain in thoracic spine 2. Chest pain Core Measures/Misc (04/19) Acute Coronary Syndrome ACS Diagnosis: No Congestive Heart Failure Congestive Heart Failure Diagnosis No Cerebrovascular Accident CVA/TIA Diagnosis: No VTE (View Protocol) VTE Risk Factors Age>40 No Mechanical VTE Prophylaxis d/t N/A MechProphylax Ordered No VTE Pharm Prophylaxis d/t NA PharmProphylax ordered Sepsis (View protocol) Sepsis Present: No If YES complete Sepsis Event Note If YES complete Sepsis Event Note Lorie SPAULDING,[facility] 04/06/18 0245: General Information and HPI Allergies/Medications Home Med list Apixaban (Eliquis) 5 MG TABLET 0 PO BID PE PLEASE TAKE 1 TAB TWICE A DAY Lidocaine (Lidoderm) 5 % ADH..PATCH 1 PAT TOP DAILY Pain Please apply as directed. Core Measures/Misc (04/19) Sepsis (View protocol) If YES complete Sepsis Event Note If YES complete Sepsis Event Note Resident Review Statement Resident Statement: examined this patient, discussed with regulatory affairs intern, reviewed EMR data (avail) Other Findings: 37-year-old female recently discharge from [facility] on 03/12/18 after being treated for bilateral pulmonary embolism on Eliquis presented to the ED with complains of right upper back pain radiating to her chest for the past 2 days. She states that she woke up with the pain and is similar to last month when she initally had the PE except she has no shortness of breath currently. She describes her pain as sharp, 10/10 in severity, aggravated with right arm movement. She took Percocet for pain but it did not provide any significant relief. She has seen a edge banding machine offbearer after her discharge and had some blood work done but states the results are pending. She denies any fevers, chills, shortness of breath, abdominal pain, diarrhea or any other associated symptoms. ROS: as per HPI Physical Exam: General Appearance: well developed/nourished, mild distress Head: atraumatic, normal appearance Eyes: Bilateral: normal appearance, PERRL. Ears, Nose, Throat: normal hearing and speech. No sinus tenderness Respiratory: normal breath sounds, chest tender on right anteriorly and posteriorly, decreased air entry at bases. Cardiovascular: regular rate/rhythm, normal S1 and S2, no M/R/G Gastrointestinal: soft, non-tender Extremities: no edema Neurologic/Psych: awake, alert, oriented x 3, normal mood/affect Skin: intact, normal color, warm/dry CTA Chest showed resolution of the right upper lobe filling defect. However, there is persistent limited filling to a branch of the left lower lobe pulmonary artery. A newly identified adjacent to this artery a peripheral wedge-shaped area of lung opacification which is suspicious for infarction. Assessment: 1. Right Sided Chest Pain 2. Possible Left Lower Lobe Infarction Plan: * Admit patient to general medicine floor. * It is unclear what is causing the patient's symptoms. It does not appear that she has a new PE. The area of infarction is present on the left and her symptoms are present on the right with palpable chest wall tenderness. * Would give her a trial of muscle relaxants. * Consult pulmonary and await input if this is a true second event of PE. Eliquis failure while a possibilty, would certainly be unsual especially with no family history of DVTs. * The previous CTA chest shows area of developing infarction. The finding of current infarction is likely progression since her last scan as it was still evolving at the time of her initial PE episode. * She was started on IV heparin in the ED. Would leave her on it for now. She can likely be discontinued off it in am and restarted on her Eliquis. * Diet: Regular * DVT Prophylaxis: on IV heparin * Code: Full Code Dawson Stewart 04/06/18 0320: Core Measures/Misc (04/19) Sepsis (View protocol) If YES complete Sepsis Event Note If YES complete Sepsis Event Note Attending MD Review Statement Attending Statement Attending MD Statement: examined this patient, discuss w/resident/PA/LEAD PROGRAMMER ANALYST, agreed w/resident/PA/LEAD PROGRAMMER ANALYST Attending Assessment/Plan: Addendum by . Patient was seen and examined at bedside today ( ) at .. Reviewed the history physical done by the resident. Reviewed the past medical family, family, social history. ROS: 10 point system reviewed and negative except as described above. Agree with the physical examination done by the senior administrative assistant Lungs are clear, normal cardiac examination. CT chest revealed, chest x-ray reviewed, labs reviewed as well. EKG is reviewed. a/P; -Right upper back pain: Likely musculoskeletal pain. Do not think this is due to pulmonary embolism as patient does not have any PE on right side of the chest CT scan. Give Tylenol for mild pain, can use NSAIDs for moderate to severe pain. #Left lower lobe small wedge-shaped infarct: We reviewed the CT scan from previous admission and this visit-patient probably developed this infarct before I do not think this is new. CT scan report also says there is filling defect on the left lower lobe but personally I do not think this is a new PE. Will get pulmonology opinion in this regard. As I am not convinced that this is a new PE I would not call it as a Eliquis failure, we can continue with the Lovenox for now but can switch to his home anticoagulation on discharge. #Morbid obesity: Weight loss was advised Reviewed with the resident. Agree with the rest of the plan as per resident's note. Dr.Ravinder Casey MD. Hospitalist. Pager: [phone], cell: [phone]. Pager: [phone], cell: [phone].
[2018-04-06 02:42] LABS: PT 13.4 SEC (9.4-12.5); PTT 27 SEC (25-37)
[2018-04-06 05:13] VITALS: BP 121/71
[2018-04-06 09:33] LABS: PTT 92 SEC (25-37)
--- NOTE | 2018-04-06 10:33 | Cons- Pulmonary ---
General Information and HPI Consulting Request Date of Consult: 04/06/18 Requested By: Dr. Hatch Reason for Consult: hx of PE Source of Information: patient Exam Limitations: no limitations History of Present Illness: 37 year old woman presents to hospital for right scapular pain. She was recently hospitalized for RUL & LLL PE without right heart strain - may have been provoked by recent LLL consolidation likely pulmonary infarction. She had a repeat CTA with revealed resolution of the RUL embolism and persistent filling defect in LLL vasculature. Was treated with Augmentin - empirically given consolidation and leukocytosis ( now resolved), reasonable to complete course On Eliquis, f/u hypercoagulable profile for genetic predisposition. Saw Dr. Dang. Normal ECHO, negative dopplers of LE. The pain in the right scapula is not reproducible to touch, however reproducible on moving the right hand. No LOC, normal hemodynamics, no chest pain. Improvement of left sided discomfort. No leg edema, erythema or edema. Allergies/Medications Allergies: Coded Allergies: No Known Allergies (07/17/17) Home Med List: Apixaban (Eliquis) 5 MG TABLET 0 PO BID PE PELASE TAKE 2 TAB TWICE DAILY TILL 03/19/18 THEN START TAKING 1 TAB TWICE A DAY.. Oxycodone HCl/Acetaminophen (Percocet 5-325 MG Tablet) 5 MG-325 MG TABLET 1 TAB PO BID PRN pain . Current Medications: Current Medications Sig/Olinda Start time Last Medication Dose Route Stop Time Status Admin Acetaminophen 650 MG Q6P PRN 04/06 0215 AC PO Acetaminophen 1,000 MG ONCE ONE 04/06 0115 DC N/A 1 UNIT IV 04/06 0129 Acetaminophen 0 .STK-MED ONE 04/06 0108 DC IV Acetaminophen 1,000 MG ONCE ONE 04/06 0100 DC 04/06 N/A 1 UNIT IV 04/06 0114 0112 Heparin Sodium 0 .STK-MED ONE 04/06 0253 DC (Porcine) .ROUTE Heparin Sodium 5,000 UNIT ONCE ONE 04/06 0145 DC 04/06 (Porcine) IV 04/06 0146 0300 Heparin Sodium 25,000 UNIT Q24H 04/06 145 AC 04/06 (Porcine) IV 0943 Sodium Chloride 500 ML Ketorolac 0 .STK-MED ONE 04/06 0058 DC Tromethamine .ROUTE Ketorolac 30 MG ONCE ONE 04/06 0045 CAN Tromethamine IV 04/06 0046 Morphine Sulfate 0 .STK-MED ONE 04/06 0101 DC .ROUTE Oxycodone/ 1 TAB Q4P PRN 04/06 0615 AC 04/06 Acetaminophen PO 0644 Review of Systems Comments 18 pt ROS reviewed all pertinent positives and negatives in the HPI otherwise negative Past History Travel History Traveled to [place] past 21 day No Medical History Blood Transfusion Hx: No Neurological: NONE EENT: NONE Cardiovascular: NONE Respiratory: pulmonary embolism Gastrointestinal: GERD Hepatic: NONE Renal: NONE Musculoskeletal: NONE Psychiatric: NONE Endocrine: NONE Blood Disorders: NONE Cancer(s): 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 Home Who Do You Live With? spouse, child Services at Home: None Primary Language: Spanish Smoking Status: Never Smoked ETOH Use: occasional use Illicit Drug Use: denies illicit drug use Living Will? unknown Functional Ability ADLs Independent: dressing, eating, toileting, bathing. Ambulation: independent IADLs Independent: shopping, housework, finances, food prep, telephone, transportation , medication admin. Exam & Diagnostic Data Last 24 Hrs of Vital Signs/I&O Vital Signs Date Time Temp Pulse Resp B/P B/P Pulse O2 O2 Flow FiO2 Mean Ox Delivery Rate 04/06 0800 94 Nasal 2.0L Cannula 04/06 0513 97.8 56 20 121/71 100 Nasal 2.0L Cannula 04/06 0335 98.5 56 18 102/58 100 Room Air 04/05 2352 98.3 62 18 115/55 98 Room Air 04/05 2224 Room Air 04/05 2124 98.6 65 18 115/80 98 Room Air Intake & Output 04/06 1600 04/06 0800 04/06 0000 Intake Total 204 0 Output Total 300 0 Balance -96 0 Intake, IV 204 Intake, Oral 0 Output, Urine 300 0 Patient 270 lb 270 lb Weight Weight Bed scale Reported by Patient Measurement Method Physical Exam Other Physical Findings: gen-[id number] heent-ncat cvs-s1,s2 lungs-left basilar crackles abd-soft,bs+ ext-no edema Last 48 Hrs of Labs/Juvencio: Laboratory Tests 04/06/18 0850: APTT 92 H 04/06/18 0225: PT 13.4 H, INR 1.23 H, APTT 27 04/05/18 2330: Anion Gap 6, Estimated GFR > 60, BUN/Creatinine Ratio 22.5, Glucose 86, Calcium 9.7, Iron 46, TIBC 411, Ferritin 20.5, Total Bilirubin 0.1 L, AST 15, ALT 23, Alkaline Phosphatase 82, Troponin I < 0.01, Total Protein 6.8, Albumin 3.8, Globulin 3.0, Albumin/Globulin Ratio 1.3, Total Beta HCG NEGATIVE, CBC w Diff NO MAN DIFF REQ, RBC 3.98 L, MCV 79.8 L, MCH 25.7 L, MCHC 32.3 L, RDW 16.2 H, MPV 10.0, Gran % 52.1, Lymphocytes % 34.5, Monocytes % 7.6, Eosinophils % 5.0, Basophils % 0.8, Absolute Granulocytes 5.0, Absolute Lymphocytes 3.3, Absolute Monocytes 0.7 H, Absolute Eosinophils 0.5, Absolute Basophils 0.1 Assessment/Plan Impression/Plan: Impression 37 year old woman * Recent RUL & LLL PE without right heart strain - may have been provoked by recent * LLL consolidation likely secondary to pulmonary infarction Plan -followed with Dr. Dang - no new clot burden, this is not a failure of Elielidia, angel resume -f/u hypercoagulable profile -previously normal ECHO, negative dopplers of LE -unclear discomfort of right scapular pain, seems to be musculoskeletal and reproducible by range of motion -pulmonary infarcts usually form into scar tissue, however can be a future source of pneumonia -offered for the patient for evaluation at [facility] in [place] directed by Dr. Celeste Dallas -f/u with Dr. Dang -pain management Consult Acknowledgment - Thank you for your consult request.
[2018-04-06] MEDS ORDERED: LIDODERM1 EACH TOP ×2 (11:46→14:20)
--- NOTE | 2018-04-06 11:48 | Patient Discharge Instructions ---
Discharge Instructions General Discharge Information You were seen/treated for: Right scapular pain You had these procedures: CTA Special Instructions: Please follow up with your PCP within 1 week of discharge to discuss this hospital admission. Please follow up with your clinical pharmacy coordinator regarding recent blood work done. Acute Coronary Syndrome Inclusion Criteria At DC or during hospital stay patient has or had the following: ACS DIAGNOSIS No Discharge Core Measures Meds if any: Prescribed or Continued at Discharge Meds if any: NOT Prescribed or Continued at Discharge Congestive Heart Failure Inclusion Criteria At DC or during hospital stay patient has or had the following: CHF DIAGNOSIS No Discharge Core Measures Meds if any: Prescribed or Continued at Discharge Meds if any: NOT Prescribed or Continued at Discharge Cerebrovascular accident Inclusion Criteria At DC or during hospital stay patient has or had the following: Discharge Core Measures Meds if any: Prescribed or Continued at Discharge Meds if any: NOT Prescribed or Continued at Discharge Venous thromboembolism Inclusion Criteria VTE Diagnosis No VTE Type NONE VTE Confirmed by (Test) NONE Discharge Core Measures - Per Current guidelines, there needs to be overlap - treatment for the first 5 days of Warfarin therapy. - If discharged on Warfarin prior to 5 days of - overlap therapy, the patient will need to be - assessed for post discharge needs including - *Post discharge parental anticoagulation - *Warfarin and/or parental anticoagulation education - *Follow up date to check INR post discharge Meds if any: Prescribed or Continued at Discharge Note: Overlap Therapy is Warfarin and Anticoagulant Meds if any: NOT Prescribed or Continued at Discharge
[2018-04-06] MEDS ORDERED: ELIQUIS5 M1 PO (14:43)
[2018-04-06 14:58] VITALS: BP 126/90
--- NOTE | 2018-04-06 17:04 | Discharge Summary ---
Visit Information Visit Dates Admission Date: 04/06/18 Discharge Date: 04/06/18 Hospital Course Course Attending Physician: Landen Hatch MD Primary Care Physician: Rick SPAULDING,Chester Louise [facility] Course: Ms. Daniels is a 37 year-old female with a past medical history significant for pulmonary embolus after , discharged from [facility] on March 12 , on Eliquis (started 03/14/18), compliant, that presented to the emergency department for right-sided back and chest pain 1 day. She was admitted to the [facility] team for workup for a possible PE while on elliquis. Her stay, workup, assessment and treatment are summarized below: PROBLEM LIST Right Scapular Pain S/p PE on elliquis, compliant Her initial presentation was concerning for a possible PE while on elliquis. During this time, her elliquis was stopped and started on IV heparin. CTA was done which showed persistent limited filling to a branch of the left lower lobe pulmonary artery. Newly identified adjacent to this artery is a peripheral wedge -shaped area of lung opacification suspicious for infarction. The previously identified right upper lobe filling defect no longer identified. Her symptoms and imaging findings were inconsistent with a pulmonary emboli while on elliquis. The infarct is most likely natural progression from her prior now incidentally found on this present CTA. Her pain was reproducible on examination when ROM was assessed, pointing towards a musculoskeletal issue. Pulmonology service was consulted who agreed this most likely did not represent a repeat PE while on elliquis with the recommendations to follow up with her tightening machine operator regarding her recent hypercoagulability work up that is pending. She was also given information regarding vascular assessment in [place] by Dr. Cuellar should she want a second opinion or more information regarding her pulmonary infarct. She was discharged on improvement of her symptoms and restarted on elliquis, with the instructions to follow up with her PCP, Dr. Cabrera; her tightening machine operator, Dr. Dang about her hypercoagulability workup, and with lidocaine patches for the pain. She was also instructed on avoiding repetitive motion with her right arm. During her admission, she was a FULL CODE. She was on a regular diet. She received IV heparin as anticoagulation. Allergies: Coded Allergies: No Known Allergies (07/17/17) Significant Procedures: PATIENT: HENRY DANIELS PRESENT AGE: 37 PATIENT ACCOUNT NO: [id number] : 81 LOCATION: [facility] ORDERING PHYSICIAN: Eve MCWILLIAMS SERVICE DATE: 04/05/18 EXAM TYPE: CAT - CTA CHEST-PULMONARY EMBOLISM EXAMINATION: CT PULMONARY EMBOLISM STUDY CLINICAL INFORMATION: Right-sided pain. History of prior pulmonary embolism. COMPARISON: March 12, 2018. TECHNIQUE: Contiguous helical images of the chest were obtained following the administration of IV contrast. Multiplanar reconstructions were performed. MIPS were obtained and reviewed. DLP: 853 mGy-cm. CONTRAST: 65 cc Optiray 320 were administered without incident. FINDINGS: The heart is of normal size. There is no pericardial effusion. There is limited filling to a branch of the pulmonary artery supplying the left lower lobe. Embolism was identified at this location on the prior exam. There is new demonstration of a somewhat wedge-shaped peripheral opacification within the adjacent lung parenchyma at this location. The previously identified filling defect within the right upper lobe has since resolved. There are no chest wall masses. Review of lung windows demonstrates that there are neither pleural effusions nor pneumothoraces. There are no consolidations. There are no pulmonary parenchymal nodules. Limited evaluation of the upper abdomen demonstrates that the liver is of normal size and attenuation without focal lesions. Normal adrenal glands are identified. IMPRESSION: Persistent limited filling to a branch of the left lower lobe pulmonary artery. Newly identified adjacent to this artery is a peripheral wedge-shaped area of lung opacification suspicious for infarction. Previously identified right upper lobe filling defect no longer identified. DICTATED BY: Landen Ramos MD DATE/TIME DICTATED:04/06/18107 EDUCATIONAL TECHNICIAN:ANUPAM DATE/TIME TRANSCRIBED:04/06/18107 Disposition Summary Disposition Principal Diagnosis: Right scapular sprain Additional Diagnosis: S/p PE on elliquis Discharge Disposition: home or self care Discharge Instructions General Discharge Information Code Status: Full Code Patient's Diet: Regular diet Patient's Activity: As tolerated Follow-Up Instructions/Appts: Please follow up with your PCP within 1 week of discharge regarding this hospital admission. Please follow up with the results of your blood workup with your tightening machine operator as instructed. Medications at Discharge Discharge Medications: Stop taking the following medications: Oxycodone HCl/Acetaminophen (Percocet 5-325 MG Tablet) 5 MG-325 MG TABLET ORAL TWICE DAILY as needed for pain Qty = 20 Start taking the following new medications: Lidocaine (Lidoderm) 5 % ADH..PATCH 1 Patch On the skin DAILY Qty = 10 No Refills Instructions: Please apply as directed. Comments: Last Taken: 04/06/18 Time: 12:30 PM The following medications have been changed: Old: Apixaban (Eliquis) 5 MG TABLET 0 ORAL TWICE DAILY Qty = 70 New: Apixaban (Eliquis) 5 MG TABLET 0 ORAL TWICE DAILY Qty = 70 Instructions: PLEASE TAKE 1 TAB TWICE A DAY Comments: Last Taken: 04/06/18 Time: 4:15 PM Copies To: Rick SPAULDING,Chester Louise Attending MD Review Statement Documenting Attending: Landen Hatch MD Other Findings: Agree with the above summary of care and plan upon discharge. Right scapular pain appears to be musculoskeletal and most c/w subscapular bursitis. She does hold her baby with her right arm. Will treat with tylenol/ etc. and follow symptoms. Continue Eliquis. Follow-up with PCP. Pulmonary consult reassured her that no new PE seen on CTPA. Images reviewed again with radiology.
--- NOTE | 2018-04-06 22:33 | PN- Att Addend ---
Attending Addendum Attending Brief Note S: The patient c/o some right scapular pain aggravated by movement. O: VS: Vital Signs Date Time Temp Pulse Resp B/P B/P Pulse O2 O2 Flow FiO2 Mean Ox Delivery Rate 04/06 1600 97 Room Air Room Air 04/06 1458 98.1 66 18 126/90 97 Room Air 04/06 1152 18 97 Room Air Room Air 04/06 0800 94 Nasal 2.0L Cannula 04/06 0513 97.8 56 20 121/71 100 Nasal 2.0L Cannula 04/06 0335 98.5 56 18 102/58 100 Room Air 04/05 2352 98.3 62 18 115/55 98 Room Air Intake & Output 04/06 1600 04/06 0800 04/06 0000 Intake Total 968.8 204 0 Output Total 300 0 Balance 968.8 -96 0 Intake, IV 168.8 204 Intake, Oral 800 0 Output, Urine 300 0 Patient 270 lb 270 lb Weight Weight Bed scale Reported by Patient Measurement Method Current Medications Sig/Olinda Start time Last Medication Dose Route Stop Time Status Admin Acetaminophen 650 MG Q6P PRN 04/06 0215 DCD PO Acetaminophen 1,000 MG ONCE ONE 04/06 0115 DC N/A 1 UNIT IV 04/06 0129 Acetaminophen 0 .STK-MED ONE 04/06 0108 DC IV Acetaminophen 1,000 MG ONCE ONE 04/06 0100 DC 04/06 N/A 1 UNIT IV 04/06 0114 0112 Apixaban 5 MG BID 04/06 1418 DCD 04/06 PO 1617 Heparin Sodium 0 .STK-MED ONE 04/06 0253 DC (Porcine) .ROUTE Heparin Sodium 5,000 UNIT ONCE ONE 04/06 0145 DC 04/06 (Porcine) IV 04/06 0146 0300 Heparin Sodium 25,000 UNIT Q24H 04/06 0145 DC 04/06 (Porcine) IV 0943 Sodium Chloride 500 ML Ketorolac 0 .STK-MED ONE 04/06 0058 DC Tromethamine .ROUTE Ketorolac 30 MG ONCE ONE 04/06 0045 CAN Tromethamine IV 04/06 0046 Lidocaine 1 PAT Q24H 04/06 1145 DCD 04/06 TOP 1240 Morphine Sulfate 0 .STK-MED ONE 04/06 0101 DC .ROUTE Oxycodone/ 1 TAB Q4P PRN 04/06 0615 DCD 04/06 Acetaminophen PO 1241 Patient Medication 1 ED ONE 04/06 0000 NR Teaching ED 04/06 2899 Chest: clear Cor: RRR nl S1, S2 w/o murm Back: no tenderness Abd: benign Ext: no tenderness/edema Labs: Laboratory Tests 04/06 04/06 04/05 0850 0225 2330 Chemistry Sodium (137 - 145 mmol/L) 139 Potassium (3.5 - 5.1 mmol/L) 4.5 Chloride (98 - 107 mmol/L) 103 Carbon Dioxide (22 - 30 mmol/L) 30 Anion Gap (5 - 16) 6 BUN (7 - 17 mg/dL) 18 H Creatinine (0.5 - 1.0 mg/dL) 0.8 Estimated GFR (>60 ml/min) > 60 BUN/Creatinine Ratio (7 - 25 %) 22.5 Glucose (65 - 99 mg/dL) 86 Calcium (8.4 - 10.2 mg/dL) 9.7 Iron (37 - 170 ug/dL) 46 TIBC (265 - 497 ug/dL) 411 Ferritin (6.24 - 137 ng/mL) 20.5 Total Bilirubin (0.2 - 1.3 mg/dL) 0.1 L AST (14 - 36 U/L) 15 ALT (9 - 52 U/L) 23 Alkaline Phosphatase (<127 U/L) 82 Troponin I (< 0.11 ng/ml) < 0.01 Total Protein (6.3 - 8.2 g/dL) 6.8 Albumin (3.5 - 5.0 g/dL) 3.8 Globulin (1.9 - 4.2 gm/dL) 3.0 Albumin/Globulin Ratio (1.1 - 2.2 %) 1.3 Total Beta HCG (NEGATIVE) NEGATIVE Coagulation PT (9.4 - 12.5 SEC) 13.4 H INR (0.90 - 1.19) 1.23 H APTT (25 - 37 SEC) 92 H 27 Hematology CBC w Diff NO MAN DIFF REQ WBC (4.8 - 10.8 /CUMM) 9.6 RBC (4.20 - 5.40 /CUMM) 3.98 L Hgb (12.0 - 16.0 G/DL) 10.2 L Hct (37 - 47 %) 31.7 L MCV (81.0 - 99.0 FL) 79.8 L MCH (27.0 - 31.0 PG) 25.7 L MCHC (33.0 - 37.0 G/DL) 32.3 L RDW (11.5 - 14.5 %) 16.2 H Plt Count (130 - 400 /CUMM) 293 MPV (7.4 - 10.4 FL) 10.0 Gran % (42.2 - 75.2 %) 52.1 Lymphocytes % (20.5 - 51.1 %) 34.5 Monocytes % (1.7 - 9.3 %) 7.6 Eosinophils % (0 - 5 %) 5.0 Basophils % (0.0 - 2.0 %) 0.8 Absolute Granulocytes (1.4 - 6.5 /CUMM) 5.0 Absolute Lymphocytes (1.2 - 3.4 /CUMM) 3.3 Absolute Monocytes (0.10 - 0.60 /CUMM) 0.7 H Absolute Eosinophils (0.0 - 0.7 /CUMM) 0.5 Absolute Basophils (0.0 - 0.2 /CUMM) 0.1 Impression/Plan: #Right Scapular Pain- appears to be muscular/probable subscapular bursitis. CTPA w/o evidence of new embolism. Pulmonary consult with Dr. Cuellar appreciated. The patient does hold her baby with her right arm and this may be contributing to subscapular bursitis. Plan: OK to discharge to home- tylenol/lidoderm prn.
== END 2018-04-06 18:13 | DRG 563 ==
LOC: ERH 21:02 → 2NB 04-06 01:58 → ERHI 04-06 01:58 → ENRESERV 04-06 02:41 → 2NB 04-06 03:59
PROVIDERS: Emergency Medicine; Hospitalist; Physician Assistant
DX: S43.81XA Sprain of other specified parts of right shoulder girdle, initial encounter (principal); Z86.711 Personal history of pulmonary embolism; Z79.01 Long term (current) use of anticoagulants; K21.9 Gastro-esophageal reflux disease without esophagitis; Y93.9 Activity, unspecified; Y92.9 Unspecified place or not applicable
CPT/HCPCS: 93005; 93010; J0131; J1644; J1885